=== PATIENT | female | born 1985 | race Caucasian/White ===

== ENCOUNTER 2019-01-26 16:36 | Emergency (ER) | payer OTHER ==
[2019-01-26] MEDS ORDERED: ONDANSETRON 4 MG TAB.RAPDIS PO ONE (17:04)
--- NOTE | 2019-01-26 17:06 | ER Document Report ---
ED Medical Screen (RME) - General Chief Complaint: Abdominal Pain Stated Complaint: ABDOMINAL PAIN Time Seen by Provider: 01/26/19 16:52 Mode of Arrival: Ambulatory Information source: Patient Notes: This 33-year-old female presents emergency department with complaints of lower abdominal pain since August, increasing this past week since she had sex. She complains of pain with sex for years. [facility] but she does not know what is going on. She reports she will have sex and then she will bleed profusely afterwards. Also history of a Crohn's. Patient reports vo miting diarrhea today. Patient is very emotional. Reports she went to the bathroom 2 days ago and she noted pure black fluid in the toilet. I have greeted and performed a rapid initial assessment of this patient. A comprehensive ED assessment and evaluation of the patient, analysis of test results and completion of the medical decision making process will be conducted by additional ED providers. Dictation of this chart was performed using voice recognition software; therefore, there may be some unintended grammatical errors. TRAVEL OUTSIDE OF THE [place] IN LAST 30 DAYS: No - Related Data Allergies/Adverse Reactions: No Known Allergies Allergy (Verified 09/19/15 11:09) Past Medical History - Past Medical History Cardiac Medical History: Denies: Hx Coronary Artery Disease, Hx Heart Attack, Hx Hypertension Pulmonary Medical History: Denies: Hx Asthma, Hx Bronchitis, Hx COPD, Hx Pneumonia Neurological Medical History: Denies: Hx Cerebrovascular Accident, Hx Seizures GI Medical History: Reports: Hx Crohn's Disease, Hx Gastroesophageal Reflux Disease, Hx Ulcerative Colitis Musculoskeltal Medical History: Denies Hx Arthritis Psychiatric Medical History: Reports: Hx Anxiety, Hx Depression Past Surgical History: Reports: Hx Orthopedic Surgery. Denies: Hx Hysterectomy - Immunizations Hx Diphtheria, Pertussis, Tetanus Vaccination: Yes Physical Exam - Vital signs Vitals: Temp Pulse Resp BP Pulse Ox 99.3 F 99 16 134/80 H 94 01/26/19 16:39 01/26/19 16:39 01/26/19 16:39 01/26/19 16:39 01/26/19 16:39 Course - Vital Signs Vital signs: Temp Pulse Resp BP Pulse Ox 99.3 F 99 16 134/80 H 94 01/26/19 16:39 01/26/19 16:39 01/26/19 16:39 01/26/19 16:39 01/26/19 16:39
[2019-01-26] MEDS: IBUPROFEN 800 MG TABLET PO ONE ×2 (17:12→17:16)
[2019-01-26 17:34] LABS: ABSOLUTE LYMPHOCYTES (AUTO) 2.1 10^3/uL (0.5-4.7); ABSOLUTE MONOCYTES (AUTO) 0.8 10^3/uL (0.1-1.4); ABSOLUTE NEUT (AUTO) 10.2 10^3/uL (1.7-8.2); BASOPHILS % (AUTO) 0.2 % (0-2); EOSINOPHILS % (AUTO) 0.3 % (0-6); HEMATOCRIT 47.5 % (36.0-47.0); HEMOGLOBIN 15.9 g/dL (12.0-15.5); LYMPHOCYTES % (AUTO) 16.2 % (13-45); MEAN CORPUSCULAR HEMOGLOBIN 32.2 pg (27.0-33.4); MEAN CORPUSCULAR HGB CONC 33.5 g/dL (32.0-36.0); MEAN CORPUSCULAR VOLUME 96 fl (80-97); PLATELET COUNT 354 10^3/uL (150-450); RED BLOOD COUNT 4.95 10^6/uL (3.72-5.28); SEGMENTED NEUTROPHILS % (AUTO) 77.3 % (42-78); TOTAL CELLS COUNTED % (AUTO) 100 %; WHITE BLOOD COUNT 13.2 10^3/uL (4.0-10.5)
[2019-01-26 17:37] LABS: APPEARANCE,URINE SLIGHTLY-CLOUDY; BILIRUBIN,URINE SMALL (NEGATIVE); COLOR,URINE AMBER; GLUCOSE, URINE NEGATIVE (NEGATIVE); KETONES,URINE TRACE mg/dL (NEGATIVE); LEUKOCYTE ESTERASE,URINE NEGATIVE (NEGATIVE); NITRITE,URINE NEGATIVE (NEGATIVE); PROTEIN,URINE NEGATIVE (NEGATIVE)
--- NOTE | 2019-01-26 17:51 | ER Document Report ---
ED General - General Chief Complaint: Abdominal Pain Stated Complaint: ABDOMINAL PAIN Time Seen by Provider: 01/26/19 16:52 Mode of Arrival: Ambulatory TRAVEL OUTSIDE OF THE [place] IN LAST 30 DAYS: No - HPI Notes: 33-year-old female to the emergency department with complaints of pelvic pain that has been ongoing for the past 5 years but is gotten significantly worse in the past 10 days. She states that she has some associated nausea and vomiting with it and the pain radiates through to her back. She states in the past 5 years she has been noticing that she has painful sex and bleeds during sex. She states that she has been trying to get into see an [facility] but has not been successful. She states that she was supposed to get an [facility] today but it was canceled and she decided to seek medical attention here. She denies any fevers, chills, chest pain, shortness of breath, headache, syncope. She denies any concern for STD and states that she had negative testing about 2 weeks ago. She denies any urinary complaints. - Related Data Allergies/Adverse Reactions: No Known Allergies Allergy (Verified 09/19/15 11:09) Past Medical History - General Information source: Patient - Social History Smoking Status: Current Every Day Smoker Frequency of alcohol use: None Drug Abuse: Marijuana Lives with: Family Family History: Reviewed & Not Pertinent Patient has suicidal ideation: No Patient has homicidal ideation: No - Past Medical History Cardiac Medical History: Denies: Hx Coronary Artery Disease, Hx Heart Attack, Hx Hypertension Pulmonary Medical History: Denies: Hx Asthma, Hx Bronchitis, Hx COPD, Hx Pneumonia Neurological Medical History: Denies: Hx Cerebrovascular Accident, Hx Seizures GI Medical History: Reports: Hx Crohn's Disease, Hx Gastroesophageal Reflux Disease, Hx Ulcerative Colitis Musculoskeletal Medical History: Denies Hx Arthritis Psychiatric Medical History: Reports: Hx Anxiety, Hx Depression Past Surgical History: Reports: Hx Orthopedic Surgery. Denies: Hx Hysterectomy - Immunizations Hx Diphtheria, Pertussis, Tetanus Vaccination: Yes Review of Systems - Review of Systems Constitutional: Malaise. denies: Chills, Fever EENT: No symptoms reported Cardiovascular: denies: Chest pain, Palpitations, Heart racing, Orthopnea, Dyspnea, Syncope, Dizziness, Lightheaded Respiratory: denies: Cough, Short of breath Gastrointestinal: denies: Abdominal pain, Diarrhea, Nausea, Vomiting Female Genitourinary: Irregular period, Vaginal bleeding, Painful intercourse. denies: Musculoskeletal: See HPI, Back pain Skin: No symptoms reported Hematologic/Lymphatic: No symptoms reported Neurological/Psychological: No symptoms reported -: Yes All other systems reviewed and negative Physical Exam - Vital signs Vitals: Temp Pulse Resp BP Pulse Ox 99.3 F 99 16 134/80 H 94 01/26/19 16:39 01/26/19 16:39 01/26/19 16:39 01/26/19 16:39 01/26/19 16:39 Interpretation: Normal - General General appearance: Appears well, Alert In distress: None - HEENT Head: Normocephalic, Atraumatic Eyes: Normal Pupils: PERRL Ears: Normal External canal: Normal Tympanic membrane: Normal Sinus: Normal Nasal: Normal Mouth/Lips: Normal Mucous membranes: Normal Pharynx: Normal Neck: Normal - Respiratory Respiratory status: No respiratory distress Chest status: Nontender Breath sounds: Normal Chest palpation: Normal - Cardiovascular Rhythm: Regular Heart sounds: Normal auscultation Murmur: No - Abdominal Inspection: Normal Distension: No distension Bowel sounds: Normal Tenderness: Tender - + TTP over the suprapubic abdomen with no rebound or guarding.. No: McBurney's point, Haq's sign, Guarding, Rebound Organomegaly: No organomegaly - Genitourinary External exam: Normal Speculum exam: Cervix closed Vaginal bleeding: None Bimanuel exam: No: Bladder/Urethral tender, Adnexal mass, Adnexal tenderness, Uterus enlarged Notes: mild tenderness with palpation to the cervix. Little to no vaginal discharge. No adnexal mass or TTP. No evidence of trauma to the vaginal vault. external genitalia WNL. CHaperoned by [employer]. - Back Back: Normal, Nontender - Neurological Neuro grossly intact: Yes Cognition: Normal Orientation: AAOx4 Carlos Coma Scale Eye Opening: Spontaneous Carlos Coma Scale Verbal: Oriented Carlos Coma Scale Motor: Obeys Commands Cary Coma Scale Total: 15 Speech: Normal Cranial nerves: Normal Cerebellar coordination: Normal Motor strength normal: LUE, RUE, LLE, RLE Additional motor exam normals: Equal senior investment manager. No: Pronator drift Sensory: Normal - Psychological Associated symptoms: Normal affect, Normal mood - Skin Skin Temperature: Warm Skin Moisture: Dry Skin Color: Normal Course - Re-evaluation Re-evalutation: 01/26/19 18:55 Laboratory 01/26/19 01/26/19 01/26/19 17:10 17:10 17:10 WBC 13.2 H RBC 4.95 Hgb 15.9 H Hct 47.5 H MCV 96 MCH 32.2 MCHC 33.5 RDW 14.0 Plt Count 354 Lymph % (Auto) 16.2 [place] % (Auto) 6.0 Eos % (Auto) 0.3 Baso % (Auto) 0.2 Absolute Neuts (auto) 10.2 H Absolute Lymphs (auto) 2.1 Absolute Monos (auto) 0.8 Absolute Eos (auto) 0.0 Absolute Basos (auto) 0.0 Seg Neutrophils % 77.3 Sodium 138.3 Potassium 4.0 Chloride 107 Carbon Dioxide 24 Anion Gap 7 BUN 10 Creatinine 0.84 Est GFR ( Amer) > 60 Est GFR (MDRD) Non-Af > 60 Glucose 93 Calcium 9.4 Total Bilirubin 0.2 Direct Bilirubin 0.1 Neonat Total Bilirubin Not Reportable Neonat Direct Bilirubin Not Reportable Neonat Indirect Bili Not Reportable AST 20 ALT 14 Alkaline Phosphatase 57 Total Protein 6.1 L Albumin 3.8 Urine Color JUNAID Urine Appearance SLIGHTLY-CLOUDY Urine pH 5.0 Ur Specific [place] 1.020 Urine Protein NEGATIVE Urine Glucose (UA) NEGATIVE Urine Ketones TRACE H Urine Blood NEGATIVE Urine Nitrite NEGATIVE Urine Bilirubin SMALL H Urine Urobilinogen 2.0 H Ur Leukocyte Esterase NEGATIVE Urine WBC (Auto) 1 Urine RBC (Auto) 1 Squamous Epi Cells Auto 1 Urine Mucus (Auto) OCC Urine Ascorbic Acid NEGATIVE Urine HCG, Qual NEGATIVE Trichomonas (Wet Prep) Vaginal WBC Vaginal Yeast 01/26/19 18:30 WBC RBC Hgb Hct MCV MCH MCHC RDW Plt Count Lymph % (Auto) [place] % (Auto) Eos % (Auto) Baso % (Auto) Absolute Neuts (auto) Absolute Lymphs (auto) Absolute Monos (auto) Absolute Eos (auto) Absolute Basos (auto) Seg Neutrophils % Sodium Potassium Chloride Carbon Dioxide Anion Gap BUN Creatinine Est GFR ( Amer) Est GFR (MDRD) Non-Af Glucose Calcium Total Bilirubin Direct Bilirubin Neonat Total Bilirubin Neonat Direct Bilirubin Neonat Indirect Bili AST ALT Alkaline Phosphatase Total Protein Albumin Urine Color Urine Appearance Urine pH Ur Specific Formoso Urine Protein Urine Glucose (UA) Urine Ketones Urine Blood Urine Nitrite Urine Bilirubin Urine Urobilinogen Ur Leukocyte Esterase Urine WBC (Auto) Urine RBC (Auto) Squamous Epi Cells Auto Urine Mucus (Auto) Urine Ascorbic Acid Urine HCG, Qual Trichomonas (Wet Prep) NO TRICHOMONAS SEEN Vaginal WBC FEW WBCS SEEN Vaginal Yeast NO YEAST SEEN Transvaginal US 01/26/19 17:03 IMPRESSION: Age-appropriate exam. Impression: Chronic pelvic pain, dyspareunia. Noted pelvic US and labs. pelvic exam with pain, but no vaginal discharge. she had negative STD testing two weeks ago, low suspicion for STD. Will send to OBGYN. Give small amount of pain meds. Patient agrees with the plan. - Vital Signs Vital signs: Temp Pulse Resp BP Pulse Ox 99.3 F 99 16 134/80 H 94 01/26/19 16:39 01/26/19 16:39 01/26/19 16:39 01/26/19 16:39 01/26/19 16:39 - Laboratory Result Diagrams: 01/26/19 17:10 01/26/19 17:10 Laboratory results interpreted by me: 01/26/19 01/26/19 01/26/19 17:10 17:10 17:10 WBC 13.2 H Hgb 15.9 H Hct 47.5 H Absolute Neuts (auto) 10.2 H Total Protein 6.1 L Urine Ketones TRACE H Urine Bilirubin SMALL H Urine Urobilinogen 2.0 H - Diagnostic Test Radiology reviewed: Image reviewed, Reports reviewed Discharge - Discharge Clinical Impression: Pelvic pain, Dyspareunia Condition: Stable Disposition: HOME, SELF-CARE Instructions: Pelvic Pain ([facility]) Additional Instructions: FOLLOW UP WITH [facility] LISTED BELOW. RETURN IF WORSENING SYMPTOMS SUCH INTRACTABLE VOMITING, FEVERS, OR ANY OTHER CONCERNS. PELVIC REST FOR NOW. Prescriptions: Ondansetron [Zofran Odt 4 mg Tablet] 1 - 2 tab PO Q4HP PRN #10 tab.rapdis PRN Reason: Hydrocodone/Acetaminophen [[place] 5-325 mg Tablet] 1 tab PO Q6H #8 tablet [facility] - Follow up as needed NIKKI DOTSON DO [ACTIVE STAFF] - Follow up in 1 week
[2019-01-26 17:53] LABS: ALBUMIN 3.8 g/dL (3.5-5.0); ALKALINE PHOSPHATASE 57 U/L (38-126); ANION GAP 7 (5-19); ASPARTATE AMINO TRANSFERASE 20 U/L (14-36); BILIRUBIN,DIRECT 0.1 mg/dL (0.0-0.4); BILIRUBIN,TOTAL 0.2 mg/dL (0.2-1.3); BLOOD UREA NITROGEN 10 mg/dL (7-20); CALCIUM 9.4 mg/dL (8.4-10.2); CARBON DIOXIDE 24 mmol/L (22-30); CHLORIDE 107 mmol/L (98-107); GLUCOSE 93 mg/dL (75-110); TOTAL PROTEIN 6.1 g/dL (6.3-8.2)
--- NOTE | 2019-01-26 18:08 | RADIOLOGY REPORT (SQ) ---
EXAM DESCRIPTION: U/S NON OB PEL TV W/DOPPLER COMPLETED DATE/TIME: 01/26/2019 5:47 pm REASON FOR STUDY: pelvic pain COMPARISON: None. TECHNIQUE: Dynamic and static grayscale images acquired of the pelvis via transvaginal approach and recorded on PACS. Additional selected color Doppler and spectral images recorded. LIMITATIONS: None. FINDINGS: UTERUS: Contour normal. No mass. ENDOMETRIAL STRIPE: No focal or generalized thickening. No masses. CERVIX: Small nabothian cysts. RIGHT OVARY AND DOPPLER: Normal size. No worrisome masses. Normal arterial vascular flow without evid ence for torsion. LEFT OVARY AND DOPPLER: Normal size. No worrisome masses. Normal arterial vascular flow without evide nce for torsion. FREE FLUID: None noted. OTHER: No other significant finding. MEASUREMENTS: UTERUS: 7.9 x 5.1 x 3.3 cm ENDOMETRIAL STRIPE: 6 mm RIGHT OVARY: 3.4 x 2.6 x 1.7 cm LEFT OVARY: 2.1 x 2.3 x 2.0 cm IMPRESSION: Age-appropriate exam. TECHNICAL DOCUMENTATION: JOB ID: [id number] 2010 [employer]- All Rights Reserved Rev-09/23 Reading location - IP/workstation name: [email or web address]
[2019-01-26] MEDS ORDERED: HYDROCODONE/ACETAMINOPHEN 5-325 MG TABLET PO ONE (18:38)
[2019-01-26 18:49] LABS: T.VAGINALIS (WET MOUNT) NO TRICHOMONAS SEEN; WBCS (WET MOUNT) FEW WBCS SEEN; YEAST (WET MOUNT) NO YEAST SEEN
[2019-01-26 19:37] VITALS: BP 125/85
[2019-01-26 20:16] LABS: CHLAM PCR NOT DETECTED (NOT DETECT)
== END 2019-01-26 19:34 | disposition home or self-care (01) ==
LOC: ER 16:36
DX: N94.10 Unspecified dyspareunia (principal); R10.2 Pelvic and perineal pain; R10.9 Unspecified abdominal pain; R11.2 Nausea with vomiting, unspecified; M54.9 Dorsalgia, unspecified; F17.200 Nicotine dependence, unspecified, uncomplicated
CPT/HCPCS: 99284; 36415; 87210; 85025; 81025; 80053; 81001; 87491; 87591; 76830; 93976; S0119

== ENCOUNTER → 2019-02-08 | Outpatient (CLI) | payer OTHER ==
[2019-02-09 07:38] LABS: HEPATITS B SURFACE ANTIGEN Negative (Negative)
[2019-02-09 10:04] LABS: HEPATITIS C VIRUS ANTIBODY <0.1 s/co ratio (0.0-0.9)
== END ==
LOC: OD 12:23
PROVIDERS: ATTEND Internal Medicine Gastroenterology
DX: K50.919 Crohn's disease, unspecified, with unspecified complications (principal)
CPT/HCPCS: 36415; 80074; 85652; 86140

== ENCOUNTER 2019-02-15 10:49 | Day surgery (SDC) | payer OTHER ==
[2019-02-15] MEDS ORDERED: FENTANYL CITRATE INJ/PF 100 MCG/2 ML AMPUL IV PRN ×3 (12:48)
[2019-02-15] MEDS ORDERED: DIPHENHYDRAMINE HCL 50 MG/ML VIAL IV PRN (12:48)
[2019-02-15] MEDS ORDERED: PROMETHAZINE HCL INJ 25 MG/1 ML VIAL IV PRN (12:48)
[2019-02-15] MEDS ORDERED: PROPOFOL INJ 200 MG/20 ML VIAL IV ONE (13:06)
[2019-02-15] MEDS ORDERED: DIPHENHYDRAMINE HCL 50 MG/ML VIAL ONE (13:18)
[2019-02-15] MEDS ORDERED: PROMETHAZINE HCL INJ 25 MG/1 ML VIAL ONE (13:18)
--- NOTE | 2019-02-15 15:24 | Operative Report ---
Operative Report DATE OF SURGERY: 02/15/19 Operative Report: The risks, benefits and alternatives of the procedure including the risk of bleeding, perforation requiring surgery have been explained to the patient in detail and informed consent has been obtained. The patient is taken back to the endoscopy suite and placed in a left, lateral decubital position. Timeout was called. Propofol medication is administered. Rectal examination is done which did not reveal any masses, tears or fissures. An Olympus videoscope was introduced into the patient's rectum. The scope was then carefully advanced all the way to the cecum. The cecum was identified by the usual anatomical landmarks including the ileocecal valve as well as the appendiceal office. Photodocumentation is obtained. Scope was then sequentially pulled back via the various segments of the colon including the ascending colon, hepatic flexure, transverse colon, splenic flexure, descending colon and finally into the rectosigmoid portions of the colon. Retroflexion maneuvers performed. The risks benefits and alternatives of the procedure explained to the patient in detail and informed consent is obtained.A GIF Olympus video scope was inserted into the patient's mouth and hypopharynx, the esophagus is identified intubated and insufflated, the scope was then advanced through the esophagus stomach and duodenum, retroflexion maneuver is done ,the esophagus stomach and first and second portions of the duodenum examined. PREOPERATIVE DIAGNOSIS: Change of bowel habits. Nausea vomiting POSTOPERATIVE DIAGNOSIS: Normal terminal ileum. Right colon inflammation status post biopsy. Internal hemorrhoids. Gastritis status post biopsy. Hiatal hernia OPERATION: Colonoscopy with biopsy. EGD with biopsy SURGEON: KAILASH BELL ANESTHESIA: LMAC TISSUE REMOVED OR ALTERED: As noted above. COMPLICATIONS: None. ESTIMATED BLOOD LOSS: None. INTRAOPERATIVE FINDINGS: As noted above. PROCEDURE: Patient tolerated the procedure well. No immediate postprocedure complications are noted. Patient is discharged in good condition. Discharge date 02/15/2019. Discharge diet: Regular. Discharge activity: Regular. 2 to 3-week follow-up to discuss findings. Patient is instructed to call the office or proceed to the emergency room should there be any further questions. Wait on the pathology.
[2019-02-15 16:14] VITALS: BP 105/67
== END 2019-02-15 15:05 | disposition home or self-care (01) ==
LOC: OROUT 10:49
PROVIDERS: ATTEND Internal Medicine Gastroenterology
DX: K50.919 Crohn's disease, unspecified, with unspecified complications (principal); K29.50 Unspecified chronic gastritis without bleeding; K52.9 Noninfective gastroenteritis and colitis, unspecified; K64.8 Other hemorrhoids; K44.9 Diaphragmatic hernia without obstruction or gangrene
CPT/HCPCS: 43239; 45380; 81025; 88342 ×2; 88305 ×2; 00813; J1200; J2550; J2704; 813

== ENCOUNTER → 2019-03-06 | Outpatient (CLI) | payer OTHER ==
--- NOTE | 2019-03-06 12:00 | RADIOLOGY REPORT (SQ) ---
EXAM DESCRIPTION: NM HIDA SCAN WITH CCK COMPLETED DATE/TIME: 03/06/2019 10:32 am REASON FOR STUDY: RUQ PAIN (R10.11) R10.11 RIGHT UPPER QUADRANT PAIN COMPARISON: None. RADIONUCLIDE AND DOSE: DOSAGE RADIONUCLIDE: 5 millicuries Tc99m Mebrofenin. DOSAGE CCK: 1.1 micrograms. DOSAGE MORPHINE: Not required. The route of agent administration: Intravenous TECHNIQUE: Serial imaging right upper quadrant up to 60 minutes following injection of radionuclide. CCK injected after gallbladder visualized. LIMITATIONS: None. FINDINGS: LIVER: Normal visualization without areas of photopenia. INTRAHEPATIC BILE DUCTS: Normal size and no delay in visualization. COMMON BILE DUCT: Normal without dilatation. GALLBLADDER: Normal visualization. Calculated ejection fraction of 22.2%. Normal range is greater than 35%. PHYSICAL RESPONSE: Patients presenting complaint was reproduced. OTHER: No other significant finding. IMPRESSION: Biliary dyskinesis. The ejection fraction was 22.2% where 35% or greater is considered normal. The cystic duct and common bile duct are patent. Patient's symptoms were reproduced with CC K administration. TECHNICAL DOCUMENTATION: JOB ID: [id number] [employer]- All Rights Reserved Reading location - IP/workstation name: [email or web address]
--- NOTE | 2019-03-06 14:06 | RADIOLOGY REPORT (SQ) ---
EXAM DESCRIPTION: U/S ABDOMEN LIMITED W/O DOP COMPLETED DATE/TIME: 03/06/2019 8:14 am REASON FOR STUDY: RUQ PAIN (R10.11) R10.11 RIGHT UPPER QUADRANT PAIN COMPARISON: None. TECHNIQUE: Dynamic and static grayscale images acquired of the abdomen and recorded on PACS. Additio nal selected color Doppler and spectral images recorded. LIMITATIONS: None. FINDINGS: PANCREAS: The visualized portions of the pancreas appear normal. LIVER: Normal contour and echotexture. LIVER VASCULATURE: Normal directional flow of the main portal vein and hepatic veins. GALLBLADDER: The gallbladder wall measures 1.3 mm in thickness. There is no cholelithiasis, sludge, or pericholecystic fluid ULTRASOUND-DETECTED LIMON'S SIGN: Negative. INTRAHEPATIC DUCTS AND COMMON DUCT: The common bile duct measures 2.5 mm in diameter. There is no di latation of intrahepatic biliary ducts. INFERIOR VENA CAVA: Normal flow. AORTA: No aneurysm. RIGHT KIDNEY: The right kidney measures 9.3 cm in length. There is no hydronephrosis. PERITONEAL AND RIGHT PLEURAL SPACE: No ascites or effusions. OTHER: No other findings. IMPRESSION: No sonographic abnormality of the right upper quadrant. TECHNICAL DOCUMENTATION: JOB ID: [id number] [employer]- All Rights Reserved Reading location - IP/workstation name: [email or web address]
== END ==
LOC: RAD 07:27
PROVIDERS: ATTEND Internal Medicine Gastroenterology
DX: K82.8 Other specified diseases of gallbladder (principal); R10.11 Right upper quadrant pain
CPT/HCPCS: 76705; 78227; J2805; A9537; Q9969

== ENCOUNTER 2019-04-07 12:11 | Emergency (ER) | payer OTHER ==
[2019-04-07] MEDS ORDERED: MORPHINE SULFATE 10 MG/ML INJ IV ONE (12:23)
[2019-04-07] MEDS ORDERED: ONDANSETRON HCL INJ/PF 4 MG/2 ML SDV IV ONE (12:23)
[2019-04-07] MEDS ORDERED: NORMAL SALINE 1000 ML 1,000 ML IV ONE (12:24)
--- NOTE | 2019-04-07 12:26 | ER Document Report ---
ED Medical Screen (RME) - General Chief Complaint: Abdominal Pain Stated Complaint: ABDOMINAL PAIN,NAUSEA Time Seen by Provider: 04/07/19 12:20 Primary Care Provider: KAILASH BELL MD [Primary Care Provider] - Follow up as needed Mode of Arrival: Wheelchair Information source: Patient Notes: Patient is a 34-year-old female with past medical history of Crohn's, MS and gallbladder disease presenting with headache, nausea, vomiting, diarrhea and generalized abdominal pain. She states that she is currently waiting for [facility] to schedule her cholecystectomy. Exam: Generalized tenderness to palpation of the abdomen. I have greeted and performed a rapid initial assessment of this patient. A comprehensive ED assessment and evaluation of the patient, analysis of test results and completion of the medical decision making process will be conducted by additional ED providers. I have specifically instructed the patient or family members with the patient to immediately return to any nursing staff should anything change in the patient's condition or with their chief complaint. This medical record was dictated with voice recognizing software. There may be grammatical, syntax errors that are unintended. - Related Data Allergies/Adverse Reactions: sumatriptan [From Imitrex] Allergy (Verified 04/07/19 12:21) Difficulty breathing fluoxetine [From Prozac] Adverse Reaction (Verified 04/07/19 12:21) Anxiety Home Medications: patient doesnt have list in triage Past Medical History - Social History Chew tobacco use (# tins/day): No Frequency of alcohol use: None Drug Abuse: None - Past Medical History Cardiac Medical History: Denies: Hx Coronary Artery Disease, Hx Heart Attack, Hx Hypertension Pulmonary Medical History: Denies: Hx Asthma, Hx Bronchitis, Hx COPD, Hx Pneumonia Neurological Medical History: Denies: Hx Cerebrovascular Accident, Hx Seizures GI Medical History: Reports: Hx Crohn's Disease, Hx Gastroesophageal Reflux Disease, Hx Ulcerative Colitis Musculoskeltal Medical History: Denies Hx Arthritis Psychiatric Medical History: Reports: Hx Anxiety, Hx Depression Past Surgical History: Reports: Hx Orthopedic Surgery. Denies: Hx Hysterectomy - Immunizations Hx Diphtheria, Pertussis, Tetanus Vaccination: Yes Physical Exam - Vital signs Vitals: Temp Pulse Resp BP Pulse Ox 98.4 F 95 18 113/64 96 04/07/19 12:15 04/07/19 12:15 04/07/19 12:15 04/07/19 12:15 04/07/19 12:15 Course - Vital Signs Vital signs: Temp Pulse Resp BP Pulse Ox 98.4 F 95 18 113/64 96 04/07/19 12:15 04/07/19 12:15 04/07/19 12:15 04/07/19 12:15 04/07/19 12:15 Doctor's Discharge - Discharge Referrals: KAILASH BELL MD [Primary Care Provider] - Follow up as needed
[2019-04-07 12:53] LABS: HEMATOCRIT 44.5 % (36.0-47.0); HEMOGLOBIN 15.1 g/dL (12.0-15.5); MEAN CORPUSCULAR HEMOGLOBIN 32.7 pg (27.0-33.4); MEAN CORPUSCULAR HGB CONC 33.9 g/dL (32.0-36.0); MEAN CORPUSCULAR VOLUME 96 fl (80-97); PLATELET COUNT 293 10^3/uL (150-450); RED BLOOD COUNT 4.61 10^6/uL (3.72-5.28); RED CELL DISTRIBUTION WIDTH 13.6 % (11.5-14.0); WHITE BLOOD COUNT 6.4 10^3/uL (4.0-10.5)
[2019-04-07 13:11] LABS: APPEARANCE,URINE SLIGHTLY-CLOUDY; BILIRUBIN,URINE NEGATIVE (NEGATIVE); COLOR,URINE YELLOW; GLUCOSE, URINE NEGATIVE (NEGATIVE); KETONES,URINE TRACE mg/dL (NEGATIVE); LEUKOCYTE ESTERASE,URINE NEGATIVE (NEGATIVE); NITRITE,URINE NEGATIVE (NEGATIVE); PROTEIN,URINE 30 mg/dL (NEGATIVE); UROBILINOGEN,URINE NEGATIVE mg/dL (<2.0)
[2019-04-07 13:28] LABS: ABSOLUTE LYMPHOCYTES# (MANUAL) 0.3 10^3/uL (0.5-4.7); ABSOLUTE MONOCYTES # (MANUAL) 0.8 10^3/uL (0.1-1.4); BASOPHILS % (MANUAL) 0 % (0-2); EOSINOPHILS % (MANUAL) 0 % (0-6); LYMPHOCYTES % (MANUAL) 4 % (13-45); MONOCYTES % (MANUAL) 13 % (3-13); SEGMENTED NEUTROPHILS % (MAN) 83 % (42-78); SMUDGE CELLS PRESENT; TOTAL CELLS COUNTED 100
[2019-04-07 13:29] LABS: ALBUMIN 3.8 g/dL (3.5-5.0); ALKALINE PHOSPHATASE 61 U/L (38-126); ANION GAP 7 (5-19); ASPARTATE AMINO TRANSFERASE 17 U/L (14-36); BILIRUBIN,DIRECT 0.1 mg/dL (0.0-0.4); BILIRUBIN,TOTAL 0.1 mg/dL (0.2-1.3); BLOOD UREA NITROGEN 8 mg/dL (7-20); CALCIUM 9.2 mg/dL (8.4-10.2); CARBON DIOXIDE 26 mmol/L (22-30); CHLORIDE 107 mmol/L (98-107); GLUCOSE 110 mg/dL (75-110); PLATELET COMMENT ADEQUATE; POTASSIUM 3.9 mmol/L (3.6-5.0); TOTAL PROTEIN 6.4 g/dL (6.3-8.2)
--- NOTE | 2019-04-07 13:29 | ER Document Report ---
ED GI/ - General Chief Complaint: Abdominal Pain Stated Complaint: ABDOMINAL PAIN,NAUSEA Time Seen by Provider: 04/07/19 12:20 Primary Care Provider: [facility] [Provider Group] - Follow up as needed KAILASH BELL MD [ACTIVE STAFF] - Follow up as needed Mode of Arrival: Wheelchair Notes: Patient is a 34-year-old female with a history of MS (recently diagnosed last week by Dr. Schwarz - waiting for spinal tap), gastritis, Crohn's and hiatal hernia who presents to the emergency department with a chief complaint of abdominal pain and vomiting. Patient reports that she has been having intermittent abdominal pain for over 1 month. She states that she did have an upper endoscopy as well as a lower endoscopy by Dr Bell in February. Patient states that she had a normal ultrasound of the gallbladder but did have a HIDA scan performed at the end of February which did show 20% function. She states she is waiting for referral at [facility] to have her gallbladder removed. Patient reports she is not been able to tolerate anything by mouth over the past 2 days including water. Patient reports she is having generalized body aches. Patient reports she is having chills but has not checked her temperature at home. Patient reports she does have intermittent diarrhea and constipation due to the Crohn's. Patient reports last bowel movement was yesterday which was l oose stool without blood. TRAVEL OUTSIDE OF THE [place] IN LAST 30 DAYS: No - Related Data Allergies/Adverse Reactions: sumatriptan [From Imitrex] Allergy (Verified 04/07/19 12:21) Difficulty breathing fluoxetine [From Prozac] Adverse Reaction (Verified 04/07/19 12:21) Anxiety Home Medications: patient doesnt have list in triage Past Medical History - General Information source: Patient - Social History Smoking Status: Never Smoker Chew tobacco use (# tins/day): No Frequency of alcohol use: None Drug Abuse: None Lives with: Family Family History: Reviewed & Not Pertinent Patient has suicidal ideation: No Patient has homicidal ideation: No - Past Medical History Cardiac Medical History: Reports: None Denies: Hx Coronary Artery Disease, Hx Heart Attack, Hx Hypertension Pulmonary Medical History: Reports: None Denies: Hx Asthma, Hx Bronchitis, Hx COPD, Hx Pneumonia EENT Medical History: Reports: None Neurological Medical History: Reports: Other - MS. Denies: Hx Cerebrovascular Accident, Hx Seizures Endocrine Medical History: Reports: None Renal/ Medical History: Reports: None Malignancy Medical History: Reports: None GI Medical History: Reports: Hx Crohn's Disease, Hx Gastritis, Hx Gastroeso phageal Reflux Disease, Hx Hiatal Hernia, Hx Ulcerative Colitis Musculoskeletal Medical History: Reports None, Denies Hx Arthritis Skin Medical History: Reports None Psychiatric Medical History: Reports: Hx Anxiety, Hx Depression Traumatic Medical History: Reports: None Infectious Medical History: Reports: None Past Surgical History: Reports: Hx Orthopedic Surgery. Denies: Hx Hysterectomy - Immunizations Hx Diphtheria, Pertussis, Tetanus Vaccination: Yes Review of Systems - Review of Systems Constitutional: See HPI EENT: No symptoms reported Cardiovascular: No symptoms reported Respiratory: No symptoms reported Gastrointestinal: See HPI Genitourinary: No symptoms reported Female Genitourinary: No symptoms reported Musculoskeletal: No symptoms reported Skin: No symptoms reported Hematologic/Lymphatic: No symptoms reported Neurological/Psychological: No symptoms reported Physical Exam - Vital signs Vitals: Temp Pulse Resp BP Pulse Ox 98.4 F 95 18 113/64 96 04/07/19 12:15 04/07/19 12:15 04/07/19 12:15 04/07/19 12:15 04/07/19 12:15 Interpretation: Normal - Notes Notes: GENERAL: Well-appearing, well-nourished and in no acute distress. HEAD: Atraumatic, normocephalic. EYES: Pupils equal round and reactive to light, extraocular movements intact, sclera anicteric, conjunctiva are normal. ENT: Nares patent, oropharynx clear without exudates. Moist mucous membranes. NECK: Normal range of motion, supple without lymphadenopathy or JVD. LUNGS: Breath sounds clear to auscultation bilaterally and equal. No wheezes rales or rhonchi. HEART: Regular rate and rhythm without murmurs, rubs or gallops. ABDOMEN: Soft, minimally tender in upper abdomen, hyperactive bowel sounds. No guarding, no rebound. No masses appreciated. BACK: No cervical, thoracic, lumbar midline tenderness. No saddle anesthesia, normal distal neurovascular exam. GENITOURINARY: Deferred. EXTREMITIES: Normal range of motion, no pitting or edema. No clubbing or cyanosis. NEUROLOGICAL: Cranial nerves II through XII grossly intact. Normal speech, normal gait. PSYCH: Normal mood, normal affect. SKIN: Warm, Dry, normal turgor, no rashes or lesions noted. Course - Re-evaluation Re-evalutation: 04/07/19 13:27 We will obtain basic labs, give IV fluids for hydration. Once the laboratory studies have resulted I will consult Dr. Valdez our on-call surgicalist due to the patient's HIDA scan results from 1 month ago and inability to tolerate liquids. 04/07/19 13:44 I did consult with Dr. Valdez in regards to the patient's HIDA scan and negative ultrasound of the right upper quadrant 1 month ago. He does recommend since the patient's lipase is slightly elevated and she is having nausea and vomiting to repeat the ultrasound of the gallbladder. 04/07/19 15:04 Patient's ultrasound of the gallbladder was negative. Patient has not had any vomiting since receiving the Zofran. Upon reevaluation patient is resting comfortably but does complain of a migraine headache. Patient reports she does suffer from migraines. We will give patient Reglan, Benadryl and Toradol for her discomfort. I did inform the patient after receiving this cocktail if her symptoms improve and she can tolerate liquids we will discharge her home. Ultimately the patient will need to have her gallbladder out but I did inform her that this is not an emergent issue at this time. Patient was given strict return precautions. 04/07/19 16:19 Patient reports feeling much better with her migraine after the medication cocktail. Patient has not had any vomiting and has tolerated liquids. I did inform the patient that she will be discharged and given a prescription for Phenergan. She does report having Zofran at home that is not helping. Patient states that she feels like eating Thanksgiving dinner exacerbated her symptoms. I did inform the patient due to her HIDA scan results she does need to limit and refrain from any fat intake as this can exacerbate your pain and nausea. Patient verbalized understanding. Patient to call [facility] on Tuesday to see if they have received the referral. Patient given strict return precautions. - Vital Signs Vital signs: Temp Pulse Resp BP Pulse Ox 98.6 F 79 16 94/59 L 100 04/07/19 15:54 04/07/19 15:54 04/07/19 15:54 04/07/19 15:54 04/07/19 15:54 - Laboratory Result Diagrams: 04/07/19 12:35 04/07/19 12:35 Laboratory results interpreted by me: 04/07/19 04/07/19 04/07/19 12:25 12:35 12:35 Seg Neuts % (Manual) 83 H Lymphocytes % (Manual) 4 L Abs Lymphs (Manual) 0.3 L Total Bilirubin 0.1 L Lipase 448.2 H Urine Protein 30 H Urine Ketones TRACE H Urine Ascorbic Acid 40 H 04/07/19 17:09 Patient's lipase slightly elevated at 448. No significant leukocytosis or alteration or joints. - Diagnostic Test Radiology reviewed: Reports reviewed Radiology results interpreted by me: 04/07/19 15:06 Abdomen Ultrasound 04/07/19 13:43 IMPRESSION: No gallstones gallbladder wall thickening or pericholecystic fluid. Limited view of the midline pancreas unremarkable Discharge - Discharge Clinical Impression: Abdominal pain Qualifiers: Abdominal location: generalized Qualified Code(s): R10.84 - Generalized abdominal pain Nausea & vomiting Qualifiers: Vomiting type: unspecified Vomiting Intractability: non-intractable Qualified Code(s): R11.2 - Nausea with vomiting, unspecified Condition: Stable Disposition: HOME, SELF-CARE Additional Instructions: *Today you are seen the emergency department for abdominal pain. We have given you a sufficient amount of medication which did seem to help with your symptoms. Please take the Phenergan as needed for your nausea. Please refrain from eating fat as we do know that you have biliary dyskinesia and that your gallbladder is not functioning appropriately. Eating any type of fat or grease can exacerbate your symptoms and cause nausea, vomiting or diarrhea and increased pain. Please call us [facility] on Tuesday to see if they have received a referral. Abdominal Pain There are many causes of abdominal pain. Pain can mean a serious problem requiring surgery (such as appendicitis). It can also be an innocent problem that goes away on its own (such as a viral infection). Often, time must pass to determine the cause of pain. The physician does not feel that hospitalization is necessary, at present. Things may change within the next 24 hours. Call the doctor or come back for re-examination if any problems occur, such as: (1) Pain that becomes more severe, steady, or becomes concentrated in one specific area. Also, pain that is more severe with movement or coughing. (2) Vomiting that persists or becomes more frequent. (3) Blood in the vomitus, urine, or bowel movements. Blood in the stool may have a tarry or black appearance. (4) Shaking chills or fever greater than 100 degrees F. (5) The abdomen becomes more distended or swollen. (6) Bowel movements cease. (7) Failure to improve as expected. Prescriptions: Promethazine HCl [Phenergan 25 mg Tablet] 1 tab PO Q6H PRN #15 tablet PRN Reason: Referrals: KAILASH BELL MD [ACTIVE STAFF] - Follow up as needed [facility] [Provider Group] - Follow up as needed
--- NOTE | 2019-04-07 14:38 | RADIOLOGY REPORT (SQ) ---
EXAM DESCRIPTION: U/S ABDOMEN LIMITED W/O DOP COMPLETED DATE/TIME: 04/07/2019 2:21 pm REASON FOR STUDY: elevated lipase, vomiting, ruq pain COMPARISON: Abdominal ultrasound 03/06/2019, 04/30/2010 Hepatobiliary scan 03/06/2019 TECHNIQUE: Dynamic and static grayscale images acquired of the abdomen and recorded on PACS. Additio nal selected color Doppler and spectral images recorded. LIMITATIONS: None. FINDINGS: PANCREAS: Midline pancreas unremarkable LIVER: No masses. Echotexture normal. LIVER VASCULATURE: Normal directional flow of the main portal vein and hepatic veins. GALLBLADDER: No stones. Normal wall thickness. No pericholecystic fluid. ULTRASOUND-DETECTED LIMON'S SIGN: Negative. INTRAHEPATIC DUCTS AND COMMON DUCT: CBD and intrahepatic ducts normal caliber. No filling defects. INFERIOR VENA CAVA: Normal flow. AORTA: No aneurysm. RIGHT KIDNEY: Normal size. Normal echogenicity. No solid or suspicious masses. No hydronephrosis. No calcifications. PERITONEAL AND RIGHT PLEURAL SPACE: No ascites or effusions. OTHER: No other significant findings. IMPRESSION: No gallstones gallbladder wall thickening or pericholecystic fluid. Limited view of the midline pancreas unremarkable TECHNICAL DOCUMENTATION: JOB ID: [id number] [employer]- All Rights Reserved Reading location - IP/workstation name: [id number]
[2019-04-07] MEDS ORDERED: METOCLOPRAMIDE HCL INJ/PF 10 MG/2 ML SDV IV ONE (14:57)
[2019-04-07] MEDS ORDERED: KETOROLAC TROMETHAMINE INJ/PF 30 MG/1 ML SDV IV ONE (15:03)
[2019-04-07] MEDS ORDERED: DIPHENHYDRAMINE HCL 50 MG/ML VIAL IV ONE (15:03)
[2019-04-07 15:55] VITALS: BP 94/59
== END 2019-04-07 16:45 | disposition home or self-care (01) ==
LOC: ER 12:11
DX: R10.84 Generalized abdominal pain (principal); R11.2 Nausea with vomiting, unspecified; M79.10 Myalgia, unspecified site; K50.90 Crohn's disease, unspecified, without complications
CPT/HCPCS: 99284; 96361; 96374; 96375; 36415; 83690; 85025; 81025; 80053; 81001; 76705; J1200; J1885; J2765; J2270; J2405; J7030

== ENCOUNTER 2019-05-25 09:14 | Day surgery (SDC) | payer OTHER ==
[2019-05-22 11:40] LABS: HEMATOCRIT 41.2 % (36.0-47.0); HEMOGLOBIN 13.8 g/dL (12.0-15.5); MEAN CORPUSCULAR HEMOGLOBIN 32.2 pg (27.0-33.4); MEAN CORPUSCULAR HGB CONC 33.5 g/dL (32.0-36.0); MEAN CORPUSCULAR VOLUME 96 fl (80-97); PLATELET COUNT 308 10^3/uL (150-450); RED BLOOD COUNT 4.29 10^6/uL (3.72-5.28); WHITE BLOOD COUNT 7.5 10^3/uL (4.0-10.5)
[2019-05-22 12:14] LABS: ALBUMIN 2.9 g/dL (3.5-5.0); ALKALINE PHOSPHATASE 60 U/L (38-126); ANION GAP 5 (5-19); ASPARTATE AMINO TRANSFERASE 20 U/L (14-36); BILIRUBIN,DIRECT 0.2 mg/dL (0.0-0.4); BILIRUBIN,TOTAL 0.2 mg/dL (0.2-1.3); BLOOD UREA NITROGEN 14 mg/dL (7-20); CALCIUM 8.6 mg/dL (8.4-10.2); CARBON DIOXIDE 25 mmol/L (22-30); CHLORIDE 109 mmol/L (98-107); POTASSIUM 4.2 mmol/L (3.6-5.0); TOTAL PROTEIN 5.2 g/dL (6.3-8.2)
[2019-05-22 12:30] LABS: GLUCOSE 44 mg/dL (75-110)
[~2019-05-25 09:14] MED LIST: CEFOXITIN SODIUM 2 GM in DEXTROSE 5%-WATER 100 ML IV PRN; DEXAMETHASONE SOD PHOSPHATE INJ 4 MG/1 ML VIAL ONE; FENTANYL CITRATE INJ/PF 100 MCG/2 ML AMPUL ONE; IBUPROFEN 800 MG in NORMAL SALINE 250 ML IV PRN; LACTATED RINGERS 1000 ML IV PRN; LIDOCAINE 0.5% INJ-PF (5 MG/ML) 50 ML SDV SUBCUT PRN; MIDAZOLAM 2 MG/2 ML INJ ONE; ONDANSETRON HCL INJ/PF 4 MG/2 ML SDV ONE; PROPOFOL INJ 200 MG/20 ML VIAL IV ONE; SUGAMMADEX SODIUM 200 MG/2 ML SDV IV ONE
[2019-05-25] MEDS ORDERED: MIDAZOLAM 2 MG/2 ML INJ ONE (10:18)
[2019-05-25] MEDS ORDERED: SUCCINYLCHOLINE CHLORIDE INJ 200 MG/10 ML VIAL ONE (10:19)
[2019-05-25] MEDS ORDERED: ROCURONIUM BROMIDE INJ 50 MG/5 ML VIAL IV ONE (10:19)
[2019-05-25] MEDS ORDERED: BUPIVACAINE HCL 0.25 % INJ/PF (2.5 MG/1 ML) 30 ML VIAL ONE (12:01)
[2019-05-25] MEDS ORDERED: MORPHINE SULFATE 10 MG/ML INJ IV PRN (12:55)
[2019-05-25] MEDS ORDERED: MEPERIDINE HCL/PF INJ 25 MG/1 ML DISP.SYRIN IV PRN (12:55)
[2019-05-25] MEDS ORDERED: PROMETHAZINE HCL INJ 25 MG/1 ML VIAL IV PRN ×2 (12:55)
[2019-05-25] MEDS ORDERED: FENTANYL CITRATE INJ/PF 100 MCG/2 ML AMPUL IV PRN ×3 (12:55)
[2019-05-25] MEDS ORDERED: ONDANSETRON HCL INJ/PF 4 MG/2 ML SDV IV PRN (12:55)
[2019-05-25] MEDS ORDERED: DIPHENHYDRAMINE HCL 50 MG/ML VIAL IV PRN (12:55)
[2019-05-25] MEDS ORDERED: BUPIVACAINE HCL 0.25 % INJ/PF (2.5 MG/1 ML) 30 ML VIAL INJ ONE (13:00)
--- NOTE | 2019-05-25 13:55 | Discharge Summary ---
Discharge Summary (SDC) - Discharge Final Diagnosis: Biliary dyskinesia Date of Surgery: 05/25/19 Discharge Date: 05/25/19 Condition: Stable Forms: ASU Anesthesia D/C Instruction, Discharge POC-Surgical Service Treatment or Instructions: Discharge home. Diet as tolerated. Activity: No lifting greater than 10 pounds x 2 weeks. Follow-up with me in 7 to 10 days. [place] 10/3 2 5 mg p.o. every 6 hours PRN for pain. Ibuprofen 800 mg p.o. 3 times daily with meals. Okay to shower in 48 hours. No tub baths or swimming pools x2 weeks. Referrals: DAVID HAYES MD [ACTIVE STAFF] - 06/05/19 1:15 pm Discharge Diet: As Tolerated Respiratory Treatments at Home: Deep Breathing/Coughing, Incentive Spirometer Discharge Activity: No Lifting Over 10 Pounds, No Lifting/Push/Pulling Home Care Assistance: None Needed Report the Following to Your Physician Immediately: Shortness of Breath, Nausea, Vomiting, Increase in Pain, Yellow Skin, Fever over 101 Degrees, Unusual Bleeding, Redness
--- NOTE | 2019-05-25 14:02 | Operative Report ---
Nonrecallable Operative Report DATE OF SURGERY: 05/25/19 PREOPERATIVE DIAGNOSIS: Biliary dyskinesia POSTOPERATIVE DIAGNOSIS: Biliary dyskinesia OPERATION: Laparoscopic cholecystectomy SURGEON: DAVID HAYES ANESTHESIA: GA TISSUE REMOVED OR ALTERED: Gallbladder COMPLICATIONS: None apparent ESTIMATED BLOOD LOSS: Minimal PROCEDURE: Drains/implants: None. Procedure in detail: After informed consent was obtained, the patient was brought to the operating room and laid in the supine position. The area of the abdomen was prepped and draped in a normal sterile fashion. A 15 blade scalpel was used to create an infraumbilical incision. This was deepened using sharp and blunt dissection. The cicatrix was identified, grasped with a Jose clamp, and retracted upwards. The linea alba fascia was incised sharply, the abdomen was entered sharply. The balloon trocar was inserted, and pneumoperitoneum was achieved. A Subxiphoid 5 mm port was then placed under direct laparoscopic visualization. 2 more 5 mm ports were placed in the right upper quadrant in similar fashion. Atraumatic graspers were placed through the 5 mm ports. The gallbladder was retracted cephalad and laterally. Dissection was begun in the triangle of [place]ot. The cystic duct and cystic artery were fully visualized and skeletonized, seeing the liver through the triangle. Once the critical view of safety was obtained, the cystic duct and cystic artery were clipped and cut with laparoscopic instruments. The gallbladder was removed from the liver using Bovie electrocautery. The gallbladder was then placed into an Endo Catch bag and pulled out through the umbilicus. The camera was then reinserted. The hilum was inspected. It was found to be free of any leakage of blood or bile. The abdomen was copiously irrigated and suctioned until the effluent was clear. Next, the 5 mm trochars were removed. The infraumbilical trocar was removed, and pneumoperitoneum was relieved. The infraumbilical fascia was closed using 0 Vicryl suture in [id number] fashion. The overlying skin was closed using 4-0 Vicryl Rapide suture in subcuticular fashion. All sponge, instrument, needle counts were correct x2. Condition: Stable.
[2019-05-25] MEDS ORDERED: ACETAMINOPHEN 1,000 MG/100 ML RTUPB IV ONE (14:10)
[2019-05-25] MEDS ORDERED: KETOROLAC TROMETHAMINE INJ/PF 30 MG/1 ML SDV ONE (14:10)
[2019-05-25] MEDS: FENTANYL CITRATE INJ/PF 100 MCG/2 ML AMPUL ONE ×2 (14:13→14:18)
[2019-05-25] MEDS ORDERED: HYDROCODONE/ACETAMINOPHEN 10-325 MG TABLET ONE (14:59)
[2019-05-25] MEDS ORDERED: DEXAMETHASONE SOD PHOSPHATE INJ 4 MG/1 ML VIAL ONE (16:09)
[2019-05-25 16:58] VITALS: BP 119/70
== END 2019-05-25 16:50 | disposition home or self-care (01) ==
LOC: OROUT 09:14
PROVIDERS: ATTEND Surgery
DX: K81.1 Chronic cholecystitis (principal); Z88.8 Allergy status to other drugs, medicaments and biological substances; G35 Multiple sclerosis; Z79.899 Other long term (current) drug therapy; E07.9 Disorder of thyroid, unspecified
CPT/HCPCS: 36415; 82962; 85027; 81025; 80053; 88304 ×2; 00790; 47562; J2250; J3490 ×2; J1100; J3010; J1885; J0330; J2405; J7060; J7050; J2704; J0131; J1741; J0694; 790

== ENCOUNTER 2019-06-11 08:03 | Day surgery (SDC) | payer OTHER ==
[2019-06-11 08:39] LABS: INTERNATIONAL RATION (INR) 1.04; PROTHROMBIN TIME 13.6 SEC (11.4-15.4)
[2019-06-11 08:40] LABS: PARTIAL THROMBOPLASTIN TIME 30.9 SEC (23.5-35.8)
[2019-06-11 11:40] LABS: GLUCOSE,CSF 57 mg/dL (40-70); PROTEIN,CSF 30 mg/dL (12-60)
[2019-06-11 12:02] LABS: APPEARANCE ALL TUBES CLEAR; APPEARANCE TUBE 1 CLEAR; APPEARANCE TUBE 2 CLEAR; APPEARANCE TUBE 3 CLEAR; APPEARANCE TUBE 4 CLEAR; COLOR ALL TUBES COLORLESS; COLOR TUBE 1 COLORLESS; COLOR TUBE 2 COLORLESS; COLOR TUBE 3 COLORLESS; COLOR TUBE 4 COLORLESS; CSF TUBE NUMBER 3
[2019-06-11 12:03] LABS: VOLUME TUBE 1 2.5 CC; VOLUME TUBE 4 3.5 CC
[2019-06-11 12:04] LABS: RED BLOOD CELL,CSF 0 /uL (0-10)
[2019-06-11 12:06] LABS: WHITE BLOOD CELL,CSF 1 /uL (0-5)
[2019-06-11 13:31] VITALS: BP 99/58
--- NOTE | 2019-06-11 13:52 | RADIOLOGY REPORT (SQ) ---
EXAM DESCRIPTION: LUMBAR PUNCTURE; FLUORO/NEEDLE PLACEMENT/SPINE COMPLETED DATE/TIME: 06/11/2019 12:16 pm; 06/11/2019 12:15 pm REASON FOR STUDY: MS G35 MULTIPLE SCLEROSIS COMPARISON: None. FLUOROSCOPY TIME: 9 seconds of fluoroscopy was used. 2 images saved to PACS. TECHNIQUE: Fluoroscopic guided lumbar puncture. LIMITATIONS: None. PROCEDURE: After written consent and assessment were obtained, the patient was brought into the fluo roscopy room and placed prone on the table. The patient's lower back was prepped in a sterile fashio n and an entry site was selected under live fluoroscopic guidance. The entry site was anesthetized wi th 1% lidocaine. A 20 gauge needle was advanced through the skin and into the thecal sac at the level of L2-L3. After approximately 10 ml was drained, the needle was removed and a sterile bandage was pl aced of the site. Specimens were sent to the lab for testing. A fluoroscopic spot image was saved t o PACS confirming level access. FINDINGS: Clear CSF IMPRESSION: Lumbar puncture under fluoroscopy. No immediate complication. COMMENT: Patient medication list reviewed: Yes- Quality ID# [id number]:Eligible professional attests to doc umenting in the medical record they obtained, updated, or reviewed the patient's current medications. . Quality ID 145: Final reports for procedures using fluoroscopy that document radiation exposure ana cristina mohini, or exposure time and number of fluorographic images (if radiation exposure indices are not avail able) TECHNICAL DOCUMENTATION: JOB ID: [id number] [employer]- All Rights Reserved Reading location - IP/workstation name: [email or web address] [id number]
--- NOTE | 2019-06-11 13:52 | RADIOLOGY REPORT (SQ) ---
EXAM DESCRIPTION: LUMBAR PUNCTURE; FLUORO/NEEDLE PLACEMENT/SPINE COMPLETED DATE/TIME: 06/11/2019 12:16 pm; 06/11/2019 12:15 pm REASON FOR STUDY: MS G35 MULTIPLE SCLEROSIS COMPARISON: None. FLUOROSCOPY TIME: 9 seconds of fluoroscopy was used. 2 images saved to PACS. TECHNIQUE: Fluoroscopic guided lumbar puncture. LIMITATIONS: None. PROCEDURE: After written consent and assessment were obtained, the patient was brought into the fluo roscopy room and placed prone on the table. The patient's lower back was prepped in a sterile fashio n and an entry site was selected under live fluoroscopic guidance. The entry site was anesthetized wi th 1% lidocaine. A 20 gauge needle was advanced through the skin and into the thecal sac at the level of L2-L3. After approximately 10 ml was drained, the needle was removed and a sterile bandage was pl aced of the site. Specimens were sent to the lab for testing. A fluoroscopic spot image was saved t o PACS confirming level access. FINDINGS: Clear CSF IMPRESSION: Lumbar puncture under fluoroscopy. No immediate complication. COMMENT: Patient medication list reviewed: Yes- Quality ID# [id number]:Eligible professional attests to doc umenting in the medical record they obtained, updated, or reviewed the patient's current medications. . Quality ID 145: Final reports for procedures using fluoroscopy that document radiation exposure ana cristina mohini, or exposure time and number of fluorographic images (if radiation exposure indices are not avail able) TECHNICAL DOCUMENTATION: JOB ID: [id number] [employer]- All Rights Reserved Reading location - IP/workstation name: [email or web address] [id number]
== END 2019-06-11 13:20 | disposition home or self-care (01) ==
LOC: RAD 08:03
PROVIDERS: ATTEND Physician Assistant Surgical
DX: G35 Multiple sclerosis (principal)
CPT/HCPCS: 36415; 62270; 77003; 82945; 83916; 84157; 85610; 85730; 87070; 87205; 89050

== ENCOUNTER 2019-06-12 15:24 | Emergency (ER) | payer OTHER ==
[2019-06-12] MEDS ORDERED: ONDANSETRON HCL INJ/PF 4 MG/2 ML SDV IV ONE (16:00)
[2019-06-12] MEDS ORDERED: NORMAL SALINE 1000 ML 1,000 ML IV ONE (16:00)
--- NOTE | 2019-06-12 16:02 | ER Document Report ---
ED Medical Screen (RME) - General Chief Complaint: Headache Stated Complaint: HEADACHE/POSSIBLY POST PROCEDURE RELATED Time Seen by Provider: 06/12/19 15:46 Primary Care Provider: WENDIE QUINTEROS NP [Primary Care Provider] - Follow up as needed Notes: HPI: History is obtained from the patient and the chart. A 34-year-old female who with a history of MS presenting for worsening headache and vomiting today. Patient had a fluoroscopy guided LP yesterday as part of her MS work-up. Patient with worsening headache nausea vomiting today no fever. Was told to come to the emergency department for worsening headache by her PCP. I have greeted and performed a rapid initial assessment of this patient. A comprehensive ED assessment and evaluation of the patient, analysis of test results and completion of the medical decision making process will be conducted by additional ED providers PHYSICAL EXAMINATION: GENERAL: Well-appearing, well-nourished and in moderate acute distress. HEAD: Atraumatic, normocephalic. EYES: sclera anicteric, conjunctiva are normal. ENT: Moist mucous membranes. NECK: Normal range of motion LUNGS: Normal work of breathing HEART: 2+ radial pulses bilaterally ABD: limited by positioning for exam in triage. EXTREMITIES: no pitting or edema. No cyanosis. NEUROLOGICAL: No focal neurological deficits. Moves all extremities spontaneously and on command. PSYCH: Normal mood, normal affect. SKIN: Warm, Dry, normal turgor, no rashes or lesions noted. I spoke with Dr. Love, anesthesiology. She will come down to see the patient and discuss a blood patch with her. Spoke with the charge nurse who will obtain bed for patient to have this procedure by anesthesiology TRAVEL OUTSIDE OF THE [place] IN LAST 30 DAYS: No - Related Data Allergies/Adverse Reactions: sumatriptan [From Imitrex] Allergy (Intermediate, Verified 05/25/19 09:28) Difficulty breathing fluoxetine [From Prozac] Allergy (Mild, Verified 05/25/19 09:28) Anxiety Past Medical History - Past Medical History Cardiac Medical History: Denies: Hx Coronary Artery Disease, Hx Heart Attack, Hx Hypertension Pulmonary Medical History: Denies: Hx Asthma, Hx Bronchitis, Hx COPD, Hx Pneumonia Neurological Medical History: Denies: Hx Cerebrovascular Accident, Hx Seizures GI Medical History: Reports: Hx Crohn's Disease, Hx Gastritis, Hx Gastroesophageal Reflux Disease, Hx Hiatal Hernia, Hx Ulcerative Colitis Musculoskeltal Medical History: Denies Hx Arthritis Psychiatric Medical History: Reports: Hx Anxiety, Hx Depression Past Surgical History: Reports: Hx Orthopedic Surgery. Denies: Hx Hysterectomy - Immunizations Hx Diphtheria, Pertussis, Tetanus Vaccination: Yes Physical Exam - Vital signs Vitals: Temp Pulse Resp BP Pulse Ox 98.2 F 76 16 117/66 100 06/12/19 15:28 06/12/19 15:28 06/12/19 15:28 06/12/19 15:28 06/12/19 15:28 Course - Vital Signs Vital signs: Temp Pulse Resp BP Pulse Ox 98.2 F 76 16 117/66 100 06/12/19 15:28 06/12/19 15:28 06/12/19 15:28 06/12/19 15:28 06/12/19 15:28 Doctor's Discharge - Discharge Referrals: WENDIE QUINTEROS FINANCIAL SALES ASSISTANT [Primary Care Provider] - Follow up as needed
[2019-06-12] MEDS ORDERED: BUTALB/ACETAMINOPHEN/CAFFEINE 1 TAB EACH PO ONE (16:58)
--- NOTE | 2019-06-12 17:16 | ER Document Report ---
ED General - General Chief Complaint: Headache Stated Complaint: HEADACHE/POSSIBLY POST PROCEDURE RELATED Time Seen by Provider: 06/12/19 15:46 Primary Care Provider: WENDIE QUINTEROS NP [NURSE PRACTITIONER] - Follow up as needed TRAVEL OUTSIDE OF THE [place] IN LAST 30 DAYS: No - HPI Notes: Patient is a 34-year-old female with a history of multiple sclerosis who presents to the emergency department for evaluation of a headache. She states that yesterday morning she had a lumbar puncture performed under fluoroscopy. She went home, stated she had a mild headache then. She states that since then has progressed. She is complaining of pain in her forehead and temporal regions, as well as in her back of her head. She states this is the typical location of her migraines. She is had some nausea but no emesis. Her pain is worsened by bending over, and actually seems to feel better when standing up straight per the patient. No fevers or chills. On occasion she has some numbness in her hand, thought to be is as a result of her multiple sclerosis, but she states she does not have that at this time. No fevers, no sore throat, no other acute complaints or concerns. - Related Data Allergies/Adverse Reactions: sumatriptan [From Imitrex] Allergy (Intermediate, Verified 05/25/19 09:28) Difficulty breathing fluoxetine [From Prozac] Allergy (Mild, Verified 05/25/19 09:28) Anxiety Home Medications: List reviewed, please see note Past Medical History - General Information source: Patient - Social History Smoking Status: Unknown if Ever Smoked Family History: Reviewed & Not Pertinent Patient has suicidal ideation: No Patient has homicidal ideation: No - Past Medical History Cardiac Medical History: Denies: Hx Coronary Artery Disease, Hx Heart Attack, Hx Hypertension Pulmonary Medical History: Denies: Hx Asthma, Hx Bronchitis, Hx COPD, Hx Pneumonia Neurological Medical History: Reports: Other - Multiple sclerosis, diagnosed via white matter lesions on MRI. Denies: Hx Cerebrovascular Accident, Hx Seizures GI Medical History: Reports: Hx Crohn's Disease, Hx Gastritis, Hx Gastroesophageal Reflux Disease, Hx Hiatal Hernia, Hx Ulcerative Colitis Musculoskeletal Medical History: Denies Hx Arthritis Psychiatric Medical History: Reports: Hx Anxiety, Hx Depression Past Surgical History: Reports: Hx Orthopedic Surgery. Denies: Hx Hysterectomy - Immunizations Hx Diphtheria, Pertussis, Tetanus Vaccination: Yes Review of Systems - Review of Systems Constitutional: No symptoms reported EENT: No symptoms reported Cardiovascular: No symptoms reported Respiratory: No symptoms reported Gastrointestinal: See HPI Genitourinary: No symptoms reported Musculoskeletal: No symptoms reported Skin: No symptoms reported Neurological/Psychological: No symptoms reported Physical Exam - Vital signs Vitals: Temp Pulse Resp BP Pulse Ox 98.2 F 76 16 117/66 100 06/12/19 15:28 06/12/19 15:28 06/12/19 15:28 06/12/19 15:28 06/12/19 15:28 - Notes Notes: This is a 34-year-old female who appears her stated age, in no acute distress. She is lying flat on the bed. Vital signs reviewed, please refer to chart. Head is normocephalic, atraumatic. Pupils equal round, reactive to light. Neck is supple without meningismus. Heart is regular rate and rhythm. Lungs are clear to auscultation bilaterally. Abdomen is soft, nontender, normoactive bowel sounds throughout. Extremities without cyanosis, clubbing. Posterior calves are nontender. Peripheral pulses are equal. Skin is warm and dry. Examination of the back yields a puncture ninoska to the left of her L3-L4 interspace, consistent with recent lumbar puncture. No surrounding erythema, edema, or induration. Patient is awake, alert, oriented x3. Cranial nerves II - XII are grossly intact without focal neurological deficits. Strength is plus 5 out of 5 bilateral upper and lower extremities. Sensation is intact. Reflexes symmetr ical. Intact [id number], rapid alternating movements, [id number]. Course - Re-evaluation Re-evalutation: 06/12/19 17:15 Patient presents to the emergency department for evaluation. She complains of a headache after lumbar puncture. Certainly this does not seem very typical of a spinal headache, but I will defer to my anesthesia colleague in regards to treatment. She was evaluated by Dr. Love, who asked that the patient be administered to Fioricet and they will reassess. Patient is comfortable and stable at this time. We will continue to monitor. 06/12/19 18:27 Patient feeling moderately improved. The anesthesiologist spoke to the patient and nurse, discussed proceeding with blood patch versus a trial of Fioricet at home. The patient opted for some Fioricet at home and follow-up. She understands she is to return the emergency department with worsening or new concerning symptoms of any sort. - Vital Signs Vital signs: Temp Pulse Resp BP Pulse Ox 98.2 F 76 18 105/67 99 06/12/19 15:28 06/12/19 15:28 06/12/19 18:01 06/12/19 18:00 06/12/19 18:01 Discharge - Discharge Clinical Impression: Headache Clinical Impression: (Ruled Out): Headache , short unilat neuralgiform, w/conjunctival injection/tearing Condition: Stable Disposition: HOME, SELF-CARE Instructions: Post-Spinal Headache ([facility]), Headache ([facility]) Additional Instructions: You were evaluated here for possible spinal headache. You will be sent home with a prescription of Fioricet, the medication you were given here. If your pain worsens, or you develop any new or concerning symptoms of any sort, please return immediately to the emergency department for reevaluation. Otherwise, follow-up with primary care this week. Referrals: WENDIE QUINTEROS MEDIC TECHNICIAN [NURSE PRACTITIONER] - Follow up as needed
[2019-06-12 18:47] VITALS: BP 100/67
== END 2019-06-12 18:45 | disposition home or self-care (01) ==
LOC: ER 15:24
DX: R51 Headache (principal); R11.0 Nausea; G35 Multiple sclerosis; Z98.890 Other specified postprocedural states; Z88.6 Allergy status to analgesic agent; Z88.8 Allergy status to other drugs, medicaments and biological substances
CPT/HCPCS: 99283; 96361; 96374; J3490; J2405; J7030

== ENCOUNTER 2019-06-14 21:57 | Emergency (ER) | payer OTHER ==
[2019-06-14] MEDS ORDERED: DIPHENHYDRAMINE HCL 50 MG/ML VIAL IV ONE (22:44)
[2019-06-14] MEDS ORDERED: KETOROLAC TROMETHAMINE INJ/PF 30 MG/1 ML SDV IV ONE (22:44)
[2019-06-14] MEDS ORDERED: METOCLOPRAMIDE HCL INJ/PF 10 MG/2 ML SDV IV ONE (22:44)
[2019-06-14] MEDS ORDERED: NORMAL SALINE 1000 ML 1,000 ML IV ONE (22:45)
--- NOTE | 2019-06-14 22:48 | ER Document Report ---
ED Medical Screen (RME) - General Chief Complaint: Headache Stated Complaint: HEADACHE Time Seen by Provider: 06/14/19 22:40 [facility] Provider: [facility] [Primary [facility]] - Follow up as needed Notes: Patient is a 34-year-old female with a history of MS who presents emergency department with headache. Patient reports she had a lumbar puncture on Tuesday. Patient reports right afterwards she developed a headache. Patient was reports that she returned to the hospital then and was seen by the anesthesiologist on Tuesday. Patient reports she was given Fioricet. They did offer a blood patch which at that time she declined as she would try the Fioricet. Patient reports is worse when sitting or standing. Patient reports the headache is located in her bilateral temples and back of her head. Patient reports some light sensitivity and nausea. Denies fever or vomiting. Patient reports she is been attempting to take the Fioricet which did initially help but that is not anymore. Patient also takes promethazine and Zofran at home. TRAVEL OUTSIDE OF THE [place] IN LAST 30 DAYS: No - Related Data Allergies/Adverse Reactions: sumatriptan [From Imitrex] Allergy (Intermediate, Verified 06/14/19 22:38) Difficulty breathing fluoxetine [From Prozac] Allergy (Mild, Verified 06/14/19 22:38) Anxiety Home Medications: "Patient refused" Past Medical History - Past Medical History Cardiac Medical History: Denies: Hx Coronary Artery Disease, Hx Heart Attack, Hx Hypertension Pulmonary Medical History: Denies: Hx Asthma, Hx Bronchitis, Hx COPD, Hx Pneumonia Neurological Medical History: Reports: Hx Migraine. Denies: Hx Cerebrovascular Accident, Hx Seizures GI Medical History: Reports: Hx Crohn's Disease, Hx Gastritis, Hx Gastroesophageal Reflux Disease, Hx Hiatal Hernia, Hx Ulcerative Colitis Musculoskeltal Medical History: Denies Hx Arthritis Psychiatric Medical History: Reports: Hx Anxiety, Hx Depression Past Surgical History: Reports: Hx Orthopedic Surgery. Denies: Hx Hysterectomy - Immunizations Hx Diphtheria, Pertussis, Tetanus Vaccination: Yes Physical Exam - Vital signs Vitals: Temp Pulse Resp BP Pulse Ox 99.2 F 93 16 97/65 L 100 06/14/19 22:01 06/14/19 22:01 06/14/19 22:01 06/14/19 22:01 06/14/19 22:01 Course - Re-evaluation Re-evalutation: 06/14/19 22:47 Patient alert and oriented x3 in triage. Patient no acute distress. We will start IV fluids as well as our migraine cocktail to include Reglan, Toradol, Benadryl. I have greeted and performed a rapid initial assessment of this patient. A comprehensive ED assessment and evaluation of the patient, analysis of test results and completion of the medical decision making process will be conducted by additional ED providers. - Vital Signs Vital signs: Temp Pulse Resp BP Pulse Ox 99.2 F 93 16 97/65 L 100 06/14/19 22:01 06/14/19 22:01 06/14/19 22:01 06/14/19 22:01 06/14/19 22:01 Doctor's Discharge - Discharge Referrals: [facility] [Primary Care Provider] - Follow up as needed
[2019-06-14] MEDS ORDERED: PROCHLORPERAZINE EDISYLATE INJ 10 MG/2 ML VIAL IV ONE (23:10)
--- NOTE | 2019-06-14 23:14 | ER Document Report ---
ED Headache - General Chief Complaint: Headache Stated Complaint: HEADACHE Time Seen by Provider: 06/14/19 22:40 Primary Care Provider: LAURA,KAREN [Primary Care Provider] - Follow up as needed Notes: 34-year-old woman presents to the emergency department with a complaint of a severe headache which began after her lumbar puncture which was performed on Tuesday. She was seen at the hospital with complaint of headache and was given the option of a blood patch versus medical treatment with Fioricet. The patient chose to treat the headache with Fioricet. It has not controlled the headache and she feels like her migraine has kicked in. She complains of nausea, photophobia and fatigue. TRAVEL OUTSIDE OF THE [place] IN LAST 30 DAYS: No - Related Data Allergies/Adverse Reactions: sumatriptan [From Imitrex] Allergy (Intermediate, Verified 06/14/19 22:38) Difficulty breathing fluoxetine [From Prozac] Allergy (Mild, Verified 06/14/19 22:38) Anxiety Home Medications: "Patient refused" Past Medical History - Social History Smoking Status: Never Smoker Family History: Reviewed & Not Pertinent Patient has suicidal ideation: No Patient has homicidal ideation: No - Past Medical History Cardiac Medical History: Denies: Hx Coronary Artery Disease, Hx Heart Attack, Hx Hypertension Pulmonary Medical History: Denies: Hx Asthma, Hx Bronchitis, Hx COPD, Hx Pneumonia Neurological Medical History: Reports: Hx Migraine. Denies: Hx Cerebrovascular Accident, Hx Seizures GI Medical History: Reports: Hx Crohn's Disease, Hx Gastritis, Hx Gastroesophageal Reflux Disease, Hx Hiatal Hernia, Hx Ulcerative Colitis Musculoskeletal Medical History: Denies Hx Arthritis Psychiatric Medical History: Reports: Hx Anxiety, Hx Depression Past Surgical History: Reports: Hx Orthopedic Surgery. Denies: Hx Hysterectomy - Immunizations Hx Diphtheria, Pertussis, Tetanus Vaccination: Yes Review of Systems - Review of Systems Notes: Constitutional: Negative for fever. HENT: Negative for sore throat. Eyes: Negative for visual changes. Cardiovascular: Negative for chest pain. Respiratory: Negative for shortness of breath. Gastrointestinal: Negative for abdominal pain, vomiting or diarrhea. Genitourinary: Negative for dysuria. Musculoskeletal: Negative for back pain. Skin: Negative for rash. Neurological: + Headaches, + weakness 10 point ROS negative except as marked above and in HPI. Physical Exam - Vital signs Vitals: Temp Pulse Resp BP Pulse Ox 99.2 F 93 16 97/65 L 100 06/14/19 22:01 06/14/19 22:01 06/14/19 22:01 06/14/19 22:01 06/14/19 22:01 - Notes Notes: PHYSICAL EXAMINATION: Physical Exam: General: Well-nourished well-developed 34-year-old female moderate distress secondary to severe headache HEENT: NC/AT, pupils equal round and reactive to light, MM moist,nares clear, oropharynx clear Neck: supple, no adenopathy, no masses. Lungs: clear, no wheezing, no rales no rhonchi CVS: Regular rate and rhythm, no murmur gallop or rub Abdomen: Soft, active nontender, no masses, no hepatosplenomegaly Ext: No edema clubbing or cyanosis. Neuro: Alert and responsive, moving all 4 extremities on command, cranial nerves intact. No focal neurologic findings. Skin: Intact no open lesions, no rash PSYCH: Normal mood, normal affect. Course - Re-evaluation Re-evalutation: 06/15/19 01:52 Patient received cocktail for migraine which included Compazine, Toradol, and Benadryl. Her headache has resolved and she is feeling much more comfortable and is ready to be discharged home. I explained to the patient that she may continue her Fioricet or follow-up with her primary care doctor as needed. She acknowledges an understanding of that plan and is in agreement. - Vital Signs Vital signs: Temp Pulse Resp BP Pulse Ox 99.2 F 93 16 97/65 L 100 06/14/19 22:01 06/14/19 22:01 06/14/19 22:01 06/14/19 22:01 06/14/19 22:01 Discharge - Discharge Clinical Impression: Migraine headache Condition: Good Disposition: HOME, SELF-CARE Instructions: Headache ([facility]), Toradol Injection ([facility]), Intravenous Compazine for Headaches ([facility]), Antinausea Medication ([facility]) Additional Instructions: You were diagnosed with migraine headache in the emergency department, the medication seems to have controlled it. If you are having current episodes or issues please follow with your primary care doctor or return to the emergency department if needed. Referrals: [facility] [Primary Care Provider] - Follow up as needed
[2019-06-15 02:01] VITALS: BP 106/60
== END 2019-06-15 01:59 | disposition home or self-care (01) ==
LOC: ER 21:57
DX: G43.909 Migraine, unspecified, not intractable, without status migrainosus (principal); Z98.890 Other specified postprocedural states; R11.0 Nausea; R53.83 Other fatigue; H53.149 Visual discomfort, unspecified; R53.1 Weakness; Z88.6 Allergy status to analgesic agent; Z88.8 Allergy status to other drugs, medicaments and biological substances
CPT/HCPCS: 99283; 96361; 96374; 96375; J1200; J1885; J0780; J7030

== ENCOUNTER → 2019-06-21 | Outpatient (CLI) | payer OTHER ==
--- NOTE | 2019-06-21 23:27 | EKG REPORT ---
SEVERITY:- NORMAL ECG - SINUS RHYTHM : Confirmed by: Ovi Ford MD 21-Jun-2019 23:27:09
== END ==
LOC: OD 16:38
PROVIDERS: ATTEND Nurse Practitioner Family
DX: I95.89 Other hypotension (principal)
CPT/HCPCS: 93005; 93010

== ENCOUNTER 2019-10-11 07:32 | Day surgery (SDC) | payer OTHER ==
[2019-10-03 12:08] LABS: HEMATOCRIT 44.2 % (36.0-47.0); HEMOGLOBIN 15.1 g/dL (12.0-15.5); MEAN CORPUSCULAR HEMOGLOBIN 32.2 pg (27.0-33.4); MEAN CORPUSCULAR HGB CONC 34.1 g/dL (32.0-36.0); MEAN CORPUSCULAR VOLUME 94 fl (80-97); PLATELET COUNT 333 10^3/uL (150-450); RED BLOOD COUNT 4.69 10^6/uL (3.72-5.28); RED CELL DISTRIBUTION WIDTH 13.8 % (11.5-14.0); WHITE BLOOD COUNT 10.9 10^3/uL (4.0-10.5)
[2019-10-03 12:09] LABS: APPEARANCE,URINE SLIGHTLY-CLOUDY; BILIRUBIN,URINE NEGATIVE (NEGATIVE); COLOR,URINE YELLOW; GLUCOSE, URINE NEGATIVE (NEGATIVE); KETONES,URINE 20 mg/dL (NEGATIVE); LEUKOCYTE ESTERASE,URINE NEGATIVE (NEGATIVE); NITRITE,URINE NEGATIVE (NEGATIVE); PROTEIN,URINE 30 mg/dL (NEGATIVE); URINE SPECIFIC GRAVITY 1.021; UROBILINOGEN,URINE NEGATIVE mg/dL (<2.0)
[~2019-10-11 07:32] MED LIST changes: -CEFOXITIN SODIUM 2 GM in DEXTROSE 5%-WATER 100 ML IV PRN; -DEXAMETHASONE SOD PHOSPHATE INJ 4 MG/1 ML VIAL ONE; -FENTANYL CITRATE INJ/PF 100 MCG/2 ML AMPUL ONE; -IBUPROFEN 800 MG in NORMAL SALINE 250 ML IV PRN; -MIDAZOLAM 2 MG/2 ML INJ ONE; -ONDANSETRON HCL INJ/PF 4 MG/2 ML SDV ONE; -PROPOFOL INJ 200 MG/20 ML VIAL IV ONE; -SUGAMMADEX SODIUM 200 MG/2 ML SDV IV ONE
[2019-10-11] MEDS ORDERED: FENTANYL CITRATE INJ/PF 100 MCG/2 ML AMPUL ONE (07:53)
[2019-10-11] MEDS ORDERED: MIDAZOLAM 2 MG/2 ML INJ ONE ×2 (07:53→08:56)
[2019-10-11] MEDS ORDERED: PROPOFOL INJ 200 MG/20 ML VIAL IV ONE (07:54)
[2019-10-11] MEDS ORDERED: ONDANSETRON HCL INJ/PF 4 MG/2 ML SDV ONE (08:26)
[2019-10-11] MEDS ORDERED: SCOPOLAMINE HYDROBROMIDE 1.5 MG PATCH.TD72 ONE (08:26)
[2019-10-11] MEDS ORDERED: PROMETHAZINE HCL INJ 25 MG/1 ML VIAL ONE (08:56)
[2019-10-11] MEDS ORDERED: MIDAZOLAM 2 MG/2 ML INJ IV PRN (09:09)
[2019-10-11] MEDS ORDERED: PROMETHAZINE HCL INJ 25 MG/1 ML VIAL IV PRN ×2 (09:39)
[2019-10-11] MEDS ORDERED: DIPHENHYDRAMINE HCL 50 MG/ML VIAL IV PRN (09:39)
[2019-10-11] MEDS ORDERED: MORPHINE SULFATE 10 MG/ML INJ IV PRN (09:39)
[2019-10-11] MEDS ORDERED: FENTANYL CITRATE INJ/PF 100 MCG/2 ML AMPUL IV PRN ×3 (09:39)
[2019-10-11] MEDS ORDERED: MEPERIDINE HCL/PF INJ 25 MG/1 ML DISP.SYRIN IV PRN (09:39)
[2019-10-11] MEDS ORDERED: ONDANSETRON HCL INJ/PF 4 MG/2 ML SDV IV PRN (09:39)
[2019-10-11] MEDS ORDERED: OXYCODONE-ACETAMINOPHEN 5-325 MG TABLET PO PRN ×4 (09:39→10:08)
[2019-10-11] MEDS ORDERED: SCOPOLAMINE HYDROBROMIDE 1.5 MG PATCH.TD72 TD ONE (10:00)
[2019-10-11] MEDS ORDERED: MIDAZOLAM 2 MG/2 ML INJ IV ONE (10:00)
[2019-10-11] MEDS ORDERED: ONDANSETRON HCL INJ/PF 4 MG/2 ML SDV IV ONE (10:00)
[2019-10-11] MEDS ORDERED: IBUPROFEN 800 MG TABLET PO PRN (10:08)
[2019-10-11] MEDS ORDERED: RINGERS SOLUTION,LACTATED 1,000 ML IV PRN (10:08)
[2019-10-11] MEDS ORDERED: KETOROLAC TROMETHAMINE INJ/PF 30 MG/1 ML SDV IV PRN (10:08)
--- NOTE | 2019-10-11 10:20 | Discharge Summary ---
Discharge Summary (SDC) - Discharge Final Diagnosis: Endometriosis Date of Surgery: 10/11/19 Discharge Date: 10/11/19 Condition: Good Prescriptions: Oxycodone HCl/Acetaminophen [Percocet 5-325 mg Tablet] 1 tab PO Q4HP PRN 7 Days #28 tablet PRN Reason: Referrals: WENDIE QUINTEROS IT SECURITY ADMINISTRATOR [Primary Care Provider] - Discharge Diet: Regular Discharge Activity: Balance Activity w/Rest Home Care Assistance: None Needed Report the Following to Your Physician Immediately: Fever over 101 Degrees
--- NOTE | 2019-10-11 10:26 | Operative Report ---
Operative Report DATE OF SURGERY: 10/11/19 PREOPERATIVE DIAGNOSIS: Pelvic pain POSTOPERATIVE DIAGNOSIS: Minimal endometriosis OPERATION: Laparoscopy with cautery of endometriosis SURGEON: MAGEN JEFFRIES ANESTHESIA: GA TISSUE REMOVED OR ALTERED: Peritoneal endometriosis COMPLICATIONS: None ESTIMATED BLOOD LOSS: 20 cc INTRAOPERATIVE FINDINGS: Minimal spots of endometriosis. Locations include right ovary left peritoneal sidewall peritoneum overlying the bladder posterior cul-de-sac. PROCEDURE: Patient was taken to the OR placed in supine position. Anesthesia was induced. She is placed in the dorsolithotomy position using Sahil stirrups. Her perineum vagina and abdomen were prepared and draped in a sterile fashion. Her bladder was drained with a red rubber catheter. A sponge stick was placed in the vagina for manipulation of the uterus. An incision was made at the umbilicus and after umbilical defect was identified and dilated using a Peg clamp. This allowed the placement of 5 mm port bluntly. Laparoscopy confirmed appropriate placement. The abdomen was insufflated with CO2 gas. Suprapubic incision was made and a port placed under laparoscopic visualization sharply. There were no complications. Next the pelvis was inspected. There were small implants of endometriosis seen over the bladder the left sidewall right ovarian area and right uterosacral ligament area. These were all quite small but were in various locations throughout the pelvis. This does explain her pelvic pain. It is known that even minimal endometriosis can cause pelvic discomfort. Cautery using Kleppinger was used to cauterize the accessible implants. We will treat the other implants globally. Next the gas was allowed to escape from the abdomen. The suprapubic port was removed under visualization. The scope and umbilical port were removed at the same time. The fascia at the umbilicus was closed with a 2-0 Vicryl stitch and the skin closed with a 4-0 undyed Vicryl stitch at both sites. The sponge stick was removed from the vagina. Patient was extubated in the OR and taken recovery in stable condition.
[2019-10-11] MEDS ORDERED: OXYCODONE-ACETAMINOPHEN 5-325 MG TABLET ONE (10:44)
[2019-10-11] MEDS ORDERED: KETOROLAC TROMETHAMINE 60 MG/2 ML SDV ONE (11:34)
[2019-10-11] MEDS ORDERED: DEXAMETHASONE SOD PHOSPHATE INJ 4 MG/1 ML VIAL ONE (11:35)
[2019-10-11 12:20] VITALS: BP 100/63
== END 2019-10-11 12:20 | disposition home or self-care (01) ==
LOC: OROUT 07:32
PROVIDERS: ATTEND Obstetrics & Gynecology
DX: R10.2 Pelvic and perineal pain (principal); N80.0 Endometriosis of uterus; Z79.899 Other long term (current) drug therapy; Z88.8 Allergy status to other drugs, medicaments and biological substances; G35 Multiple sclerosis; E07.9 Disorder of thyroid, unspecified; Z03.818 Encounter for observation for suspected exposure to other biological agents ruled out
CPT/HCPCS: 36415; 85027; 87635; 81005; 81025; 58662; 53899; J2250; J1100; J1885; J3010; J2550; J2405; J2704; C9803; 840

== ENCOUNTER 2019-11-10 21:52 | Emergency (ER) | payer OTHER ==
[2019-11-10] MEDS ORDERED: DEXAMETHASONE SOD PHOS INJ 10 MG/1 ML VIAL IV ONE (23:26)
--- NOTE | 2019-11-10 23:28 | ER Document Report ---
ED Medical Screen (RME) - General TRAVEL OUTSIDE OF THE [place] IN LAST 30 DAYS: No <YAZMIN NOBLES - Last Filed: 11/10/19 23:26> <MAYURI WOODALL JR - Last Filed: 11/11/19 01:27> - General Chief Complaint: Skin Problem Stated Complaint: RASH ON RIGHT THIGH Time Seen by Provider: 11/10/19 23:08 Primary Care Provider: WENDIE QUINTEROS NP [Primary Care Provider] - Follow up as needed Notes: HPI: 34-year-old female presenting to the emergency department complaining of a progressive rash mildly tender and pruritic on the right anterior thigh. No known tick bite. No fever. No other systemic symptoms. Patient does have MS history and is on immune suppressing medications. Patient does have history of genital herpes. PHYSICAL EXAMINATION: Patient with a patched nonblanching purpuric type rash on the right anterior thigh measuring approximately 4 cm in diameter that is mildly tender on palpation, slightly indurated without fluctuance discussed with Dr. Woodall who evaluated patient I have greeted and performed a rapid initial assessment of this patient. A comprehensive ED assessment and evaluation of the patient, analysis of test re sults and completion of medical decision making process will be conducted by an additional ED providers. (YAZMIN NOBLES) 34-year-old female arrives with chief complaint of a nonblanching 4 cm diameter erythemic vasculitis rash. Patient denies any zoster but does take Valtrex on a daily basis already. She takes this for genital herpes. MISTY Mcdonald evaluated this patient and noted that she does have MS that was diagnosed last April 2019. I advised patient to follow-up with personal doctor after initial tests are done here. She was seen at urgent care and they advised her this was a simple rash but it has grown over the last few days from a small 1 cm patch to the current 4 cm patch (MAYURI WOODALL JR) - Related Data Allergies/Adverse Reactions: sumatriptan [From Imitrex] Allergy (Intermediate, Verified 06/14/19 22:38) Difficulty breathing fluoxetine [From Prozac] Allergy (Mild, Verified 06/14/19 22:38) Anxiety Past Medical History - Social History Chew tobacco use (# tins/day): No Frequency of alcohol use: None Drug Abuse: None - Past Medical History Cardiac Medical History: Denies: Hx Coronary Artery Disease, Hx Heart Attack, Hx Hypertension Pulmonary Medical History: Denies: Hx Asthma, Hx Bronchitis, Hx COPD, Hx Pneumonia Neurological Medical History: Reports: Hx Migraine. Denies: Hx Cerebrovascular Accident, Hx Seizures GI Medical History: Reports: Hx Crohn's Disease, Hx Gastritis, Hx Gastroesophageal Reflux Disease, Hx Hiatal Hernia, Hx Ulcerative Colitis Musculoskeltal Medical History: Denies Hx Arthritis Psychiatric Medical History: Reports: Hx Anxiety, Hx Depression Past Surgical History: Reports: Hx Orthopedic Surgery. Denies: Hx Hysterectomy - Immunizations Hx Diphtheria, Pertussis, Tetanus Vaccination: Yes <YAZMIN NOBLES - Last Filed: 11/10/19 23:26> Physical Exam - Vital signs Interpretation: Febrile - General General appearance: Alert - HEENT Head: Normocephalic, Atraumatic Eyes: Normal Pupils: PERRL Mucous membranes: Normal Pharynx: Normal Neck: Normal - Respiratory Respiratory status: No respiratory distress Chest status: Nontender Breath sounds: Normal Chest palpation: Normal - Cardiovascular Rhythm: Regular Heart sounds: Normal auscultation Murmur: No - Abdominal Inspection: Normal Distension: No distension Bowel sounds: Normal Tenderness: Nontender Organomegaly: No organomegaly - Rectal Hemorrhoids: Other - deferred - Genitourinary [place] exam: Other - deferred - Back Back: Normal - Extremities General upper extremity: Normal inspection General lower extremity: Other - Right anterior thigh rash as per HPI. It is along the right proximal thigh mildly tender to palpation Knee: Normal Calf: Normal Ankle: Normal Foot: Normal - Neurological Neuro grossly intact: Yes Cognition: Normal Orientation: AAOx4 [place] Coma Scale Eye Opening: Spontaneous [place] Coma Scale Verbal: Oriented [place] Coma Scale Motor: Obeys Commands [place] Coma Scale Total: 15 Speech: Normal Motor strength normal: LUE, RUE, LLE, RLE Sensory: Normal - Psychological Associated symptoms: Normal affect - Skin Skin Temperature: Warm Skin Moisture: Dry Skin irregularity: Lesion - As per HPI for centimeter vasculitis type rash <MAYURI WOODALL JR - Last Filed: 11/11/19 01:27> - Vital signs Vitals: Temp Pulse Resp BP Pulse Ox 99.3 F 70 18 137/82 H 100 11/10/19 22:56 11/10/19 22:56 11/10/19 22:56 11/10/19 22:56 11/10/19 22:56 Course - Laboratory Result Diagrams: 11/11/19 00:05 11/11/19 00:05 - Diagnostic Test Radiology reviewed: Reports reviewed <MAYURI WOODALL JR - Last Filed: 11/11/19 01:27> - Vital Signs Vital signs: Temp Pulse Resp BP Pulse Ox 99.3 F 70 18 137/82 H 100 11/10/19 22:56 11/10/19 22:56 11/10/19 22:56 11/10/19 22:56 11/10/19 22:56 Critical Care Note - Critical Care Note Total time excluding time spent on procedures (mins): 60 <MAYURI WOODALL JR - Last Filed: 11/11/19 01:27> - Critical Care Note Comments: I took over the case after Yazmin left at 0100 and advised patient of her so far negative labs. CT results also were given to patient. We will write for Decadron and dapsone (MAYURI WOODALL JR) Doctor's Discharge <YAZMIN NOBLES - Last Filed: 11/10/19 23:26> <MAYURI WOODALL JR - Last Filed: 11/11/19 01:27> - Discharge Clinical Impression: Vasculitis Clinical Impression: (Ruled Out): Vasculitic ulcer of right lower extremity Condition: Good Disposition: HOME, SELF-CARE Additional Instructions: Follow-up this week with personal doctor and with diesel machinist call tomorrow for appointment. Take medicines as directed avoid sunlight if possible also call your neurologist about this case. Keep them apprised of your right thigh rash. Return to ER if symptoms worsen or persist. Prescriptions: Dapsone [Dapsone 25 mg Tablet] 25 mg PO DAILY #10 tablet Dexamethasone [Decadron 4 Mg Tablet] 4 mg PO DAILY #5 tablet Referrals: WENDIE QUINTEROS, GEAR STRAIGHTENER [Primary Care Provider] - Follow up as needed
[2019-11-11 00:33] LABS: ABSOLUTE BASOPHILS # (AUTO) 0.1 10^3/uL (0.0-0.2); ABSOLUTE EOSINOPHILS # (AUTO) 0.2 10^3/uL (0.0-0.6); ABSOLUTE MONOCYTES (AUTO) 0.6 10^3/uL (0.1-1.4); ABSOLUTE NEUT (AUTO) 3.7 10^3/uL (1.7-8.2); BASOPHILS % (AUTO) 0.7 % (0-2); HEMATOCRIT 43.5 % (36.0-47.0); HEMOGLOBIN 14.8 g/dL (12.0-15.5); LYMPHOCYTES % (AUTO) 40.2 % (13-45); MEAN CORPUSCULAR HEMOGLOBIN 32.5 pg (27.0-33.4); MEAN CORPUSCULAR HGB CONC 34.2 g/dL (32.0-36.0); MEAN CORPUSCULAR VOLUME 95 fl (80-97); MONOCYTES % (AUTO) 8.5 % (3-13); PLATELET COUNT 354 10^3/uL (150-450); RED BLOOD COUNT 4.56 10^6/uL (3.72-5.28); RED CELL DISTRIBUTION WIDTH 13.9 % (11.5-14.0); SEGMENTED NEUTROPHILS % (AUTO) 48.6 % (42-78); TOTAL CELLS COUNTED % (AUTO) 100 %; WHITE BLOOD COUNT 7.5 10^3/uL (4.0-10.5)
[2019-11-11] MEDS ORDERED: ONDANSETRON 4 MG TAB.RAPDIS PO ONE (00:33)
[2019-11-11 00:37] LABS: INTERNATIONAL RATION (INR) 1.18
[2019-11-11 00:44] LABS: ALBUMIN 4.3 g/dL (3.5-5.0); ALKALINE PHOSPHATASE 68 U/L (38-126); ANION GAP 5 (5-19); ASPARTATE AMINO TRANSFERASE 23 U/L (14-36); BILIRUBIN,TOTAL 0.2 mg/dL (0.2-1.3); BLOOD UREA NITROGEN 16 mg/dL (7-20); CALCIUM 9.4 mg/dL (8.4-10.2); CARBON DIOXIDE 25 mmol/L (22-30); CHLORIDE 107 mmol/L (98-107); GLUCOSE 97 mg/dL (75-110); POTASSIUM 3.8 mmol/L (3.6-5.0); TOTAL PROTEIN 7.1 g/dL (6.3-8.2)
[2019-11-11 00:46] LABS: C-REACTIVE PROTEIN < 5.0 mg/L (<10.0)
[2019-11-11 01:10] LABS: ERYTHROCYTE SEDIMENTATION RATE 6 mm/hr (0-20)
[2019-11-11] MEDS ORDERED: DEXAMETHASONE 4 MG TABLET PO ONE (01:27)
[2019-11-11] MEDS ORDERED: DAPSONE 25 MG TABLET PO SCH (01:28)
--- NOTE | 2019-11-11 01:57 | RADIOLOGY REPORT (SQ) ---
CT right thigh with contrast on 11/11/2019 at 1:21 AM Clinical indications: Right thigh rash, question vasculitis TECHNIQUE: Multiple axial images are obtained from the right pelvis through the right knee following the administration of IV contrast. 65 mL of Omnipaque 350 contrast was administered intravenously. Sagittal and coronal reformatted images are also performed and reviewed. This exam was performed according to our departmental dose-optimization program, which includes automated exposure control, adjustment of the mA and/or kV according to patient size and/or use of iterative reconstruction technique. Total DLP is 242.5 mGy*cm. COMPARISON: None FINDINGS: There are no acute fracture lines. Visualized pelvis appears unremarkable. No adenopathy is noted in the right pelvis or groin. There is skin thickening in the right anterior mid thigh with adjacent subcutaneous fat stranding in the anterior subcutaneous tissues seen on axial images 125 through 141 of series 4. This may represent an area of subcutaneous contusion or cellulitis. No abnormal vasculature is noted in this region. There is no fluid collection to suggest abscess. No pathologic contrast enhancement is noted. No mass or fluid collection is noted. No bony abnormality is noted. IMPRESSION: Subcutaneous area of contusion or cellulitis in the anterior mid thigh subcutaneous tissues as above. No evidence of abscess, abnormal vessels or mass is noted associated with this.
[2019-11-11] MEDS ORDERED: DAPSONE 25 MG TABLET ONE (02:09)
[2019-11-11 02:24] VITALS: BP 106/72
[2019-11-13 07:15] LABS: EPSTEIN BARR VCA IGM AB <36.0 U/mL (0.0-35.9)
== END 2019-11-11 02:25 | disposition home or self-care (01) ==
LOC: ER 21:52
DX: L95.9 Vasculitis limited to the skin, unspecified (principal); G35 Multiple sclerosis; Z79.899 Other long term (current) drug therapy; Z20.828 Contact with and (suspected) exposure to other viral communicable diseases
CPT/HCPCS: 99285; 96374; 36415; 86665 ×2; 86664; 85025; 85652; 85610; 87635; 86140; 80053; 73701; J3490; S0119; J1100; C9803

== ENCOUNTER 2019-11-28 19:09 | Emergency (ER) | payer OTHER ==
[2019-11-28] MEDS ORDERED: NORMAL SALINE 1000 ML 1,000 ML IV ONE (19:45)
[2019-11-28] MEDS ORDERED: PROCHLORPERAZINE EDISYLATE INJ 10 MG/2 ML VIAL IV ONE (19:45)
[2019-11-28] MEDS ORDERED: DIPHENHYDRAMINE HCL 50 MG/ML VIAL IV ONE (19:45)
--- NOTE | 2019-11-28 19:48 | ER Document Report ---
ED Medical Screen (RME) - General Chief Complaint: Headache Stated Complaint: MIGRAINE,ABDOMIANL PAIN Time Seen by Provider: 11/28/19 19:39 Primary Care Provider: WENDIE QUINTEROS NP [Primary Care Provider] - Follow up as needed Information source: Patient Notes: Patient presents complaining of headache and pelvic pain. Patient states that she has chronic migraines as well as chronic pelvic pain due to endometriosis. Patient states that the pain to her head and lower abdomen worsened over the past 2 days. Patient vague with describing her symptoms, frequently to stating that she always has this pain and has difficulty pinpointing where her pain symptoms are. Patient without any eye contact throughout entire interview. I have greeted and performed a rapid initial assessment of this patient. A comprehensive ED assessment and evaluation of the patient, analysis of test results and completion of the medical decision making process will be conducted by additional ED providers. TRAVEL OUTSIDE OF THE [place] IN LAST 30 DAYS: No - Related Data Allergies/Adverse Reactions: sumatriptan [From Imitrex] Allergy (Intermediate, Verified 11/28/19 19:39) Difficulty breathing fluoxetine [From Prozac] Allergy (Mild, Verified 11/28/19 19:39) Anxiety fremanezumab-vfrm [From Ajovy Autoinjector] Allergy (Verified 11/28/19 19:39) rizatriptan Allergy (Verified 11/28/19 19:39) Past Medical History - Past Medical History Cardiac Medical History: Denies: Hx Coronary Artery Disease, Hx Heart Attack, Hx Hypertension Pulmonary Medical History: Denies: Hx Asthma, Hx Bronchitis, Hx COPD, Hx Pneumonia Neurological Medical History: Reports: Hx Migraine. Denies: Hx Cerebrovascular Accident, Hx Seizures GI Medical History: Reports: Hx Crohn's Disease, Hx Gastritis, Hx Gastroes ophageal Reflux Disease, Hx Hiatal Hernia, Hx Ulcerative Colitis Musculoskeltal Medical History: Denies Hx Arthritis Psychiatric Medical History: Reports: Hx Anxiety, Hx Depression Past Surgical History: Reports: Hx Orthopedic Surgery. Denies: Hx Hysterectomy - Immunizations Hx Diphtheria, Pertussis, Tetanus Vaccination: Yes Physical Exam - General General appearance: Alert Notes: Poor eye contact, lower pelvic tenderness - Neurological Carlos Coma Scale Eye Opening: Spontaneous Carlos Coma Scale Verbal: Oriented Carlos Coma Scale Motor: Obeys Commands [place] Coma Scale Total: 15 Doctor's Discharge - Discharge Referrals: WENDIE QUINTEROS, [employer] ATTENDANT [Primary Care Provider] - Follow up as needed
== END 2019-11-29 03:20 | disposition left against medical advice (07) ==
LOC: ER 19:09
DX: Z53.20 Procedure and treatment not carried out because of patient's decision for unspecified reasons (principal); R51 Headache; R10.9 Unspecified abdominal pain; R10.2 Pelvic and perineal pain; R10.30 Lower abdominal pain, unspecified; Z88.8 Allergy status to other drugs, medicaments and biological substances
CPT/HCPCS: 99281

== ENCOUNTER 2020-01-06 11:23 | Emergency (ER) | payer OTHER ==
--- NOTE | 2020-01-06 11:47 | ER Document Report ---
ED Medical Screen (RME) - General Chief Complaint: Seizure Stated Complaint: POSSIBLE SEIZURE/ARM NUMBNESS Time Seen by Provider: 01/06/20 11:44 Primary Care Provider: WENDIE QUINTEROS NP [Primary Care Provider] - Follow up as needed Information source: Patient Notes: Patient presents complaining of right upper extremity pain that primarily involve the first second and third fingers and radiates up the arm. Patient states she has had chronic and numbness off and on and her doctor states she may have carpal tunnel. Patient states that this morning she believes that she may have had about 3 small seizures. Patient denies any history of seizure although does have a history of MS. Patient reports a history of ulcers, migraine and endometriosis. I have greeted and performed a rapid initial assessment of this patient. A comprehensive ED assessment and evaluation of the patient, analysis of test results and completion of the medical decision making process will be conducted by additional ED providers. TRAVEL OUTSIDE OF THE [place] IN LAST 30 DAYS: No - Related Data Allergies/Adverse Reactions: sumatriptan [From Imitrex] Allergy (Intermediate, Verified 01/06/20 11:40) Difficulty breathing fluoxetine [From Prozac] Allergy (Mild, Verified 01/06/20 11:40) Anxiety fremanezumab-vfrm [From Ajovy Autoinjector] Allergy (Verified 01/06/20 11:40) rizatriptan Allergy (Verified 01/06/20 11:40) Past Medical History - Past Medical History Cardiac Medical History: Denies: Hx Coronary Artery Disease, Hx Heart Attack, Hx Hypertension Pulmonary Medical History: Denies: Hx Asthma, Hx Bronchitis, Hx COPD, Hx Pneumonia Neurological Medical History: Reports: Hx Migraine. Denies: Hx Cerebrovascular Accident, Hx Seizures GI Medical History: Reports: Hx Crohn's Disease, Hx Gastritis, Hx Gastroesophageal Reflux Disease, Hx Hiatal Hernia, Hx Ulcerative Colitis Musculoskeltal Medical History: Denies Hx Arthritis Psychiatric Medical History: Reports: Hx Anxiety, Hx Depression Past Surgical History: Reports: Hx Orthopedic Surgery. Denies: Hx Hysterectomy - Immunizations Hx Diphtheria, Pertussis, Tetanus Vaccination: Yes Physical Exam - Vital signs Vitals: Temp Pulse Resp BP Pulse Ox 99.0 F 95 18 126/76 H 98 01/06/20 11:28 01/06/20 11:28 01/06/20 11:28 01/06/20 11:28 01/06/20 11:28 - General General appearance: Appears well, Alert In distress: None Notes: Tenderness involving the right first second third finger that extends to forearm and upper arm - Neurological Neuro grossly intact: Yes Carlos Coma Scale Eye Opening: Spontaneous [place] Coma Scale Verbal: Oriented Carlos Coma Scale Motor: Obeys Commands [place] Coma Scale Total: 15 Course - Vital Signs Vital signs: Temp Pulse Resp BP Pulse Ox 99.0 F 95 18 126/76 H 98 01/06/20 11:28 01/06/20 11:28 01/06/20 11:28 01/06/20 11:28 01/06/20 11:28 Doctor's Discharge - Discharge Referrals: WENDIE QUINTEROS NP [Primary Care Provider] - Follow up as needed
[2020-01-06 13:19] LABS: ABSOLUTE EOSINOPHILS # (AUTO) 0.4 10^3/uL (0.0-0.6); ABSOLUTE LYMPHOCYTES (AUTO) 3.1 10^3/uL (0.5-4.7); ABSOLUTE MONOCYTES (AUTO) 0.8 10^3/uL (0.1-1.4); ABSOLUTE NEUT (AUTO) 3.2 10^3/uL (1.7-8.2); BASOPHILS % (AUTO) 0.4 % (0-2); EOSINOPHILS % (AUTO) 5.8 % (0-6); HEMATOCRIT 42.8 % (36.0-47.0); HEMOGLOBIN 14.3 g/dL (12.0-15.5); LYMPHOCYTES % (AUTO) 40.7 % (13-45); MEAN CORPUSCULAR HEMOGLOBIN 32.4 pg (27.0-33.4); MEAN CORPUSCULAR HGB CONC 33.3 g/dL (32.0-36.0); MEAN CORPUSCULAR VOLUME 97 fl (80-97); MONOCYTES % (AUTO) 10.4 % (3-13); PLATELET COUNT 401 10^3/uL (150-450); RED BLOOD COUNT 4.41 10^6/uL (3.72-5.28); RED CELL DISTRIBUTION WIDTH 13.7 % (11.5-14.0); SEGMENTED NEUTROPHILS % (AUTO) 42.7 % (42-78); TOTAL CELLS COUNTED % (AUTO) 100 %; WHITE BLOOD COUNT 7.5 10^3/uL (4.0-10.5)
[2020-01-06 13:36] LABS: ALBUMIN 3.6 g/dL (3.5-5.0); ALKALINE PHOSPHATASE 66 U/L (38-126); ANION GAP 7 (5-19); ASPARTATE AMINO TRANSFERASE 28 U/L (14-36); BILIRUBIN,DIRECT 0.2 mg/dL (0.0-0.4); BILIRUBIN,TOTAL 0.3 mg/dL (0.2-1.3); BLOOD UREA NITROGEN 19 mg/dL (7-20); CALCIUM 9.1 mg/dL (8.4-10.2); CARBON DIOXIDE 29 mmol/L (22-30); CHLORIDE 100 mmol/L (98-107); CREATINE KINASE 70 U/L (30-135); POTASSIUM 4.5 mmol/L (3.6-5.0); TOTAL PROTEIN 5.8 g/dL (6.3-8.2)
[2020-01-06 13:43] LABS: GLUCOSE 51 mg/dL (75-110)
[2020-01-06 16:20] LABS: APPEARANCE,URINE CLEAR; BILIRUBIN,URINE NEGATIVE (NEGATIVE); COLOR,URINE YELLOW; GLUCOSE, URINE NEGATIVE (NEGATIVE); KETONES,URINE NEGATIVE (NEGATIVE); LEUKOCYTE ESTERASE,URINE TRACE (NEGATIVE); NITRITE,URINE NEGATIVE (NEGATIVE); PROTEIN,URINE NEGATIVE (NEGATIVE); URINE SPECIFIC GRAVITY 1.016; UROBILINOGEN,URINE NEGATIVE mg/dL (<2.0)
--- NOTE | 2020-01-06 16:20 | ER Document Report ---
ED Seizure - General Chief Complaint: Seizure Stated Complaint: POSSIBLE SEIZURE/ARM NUMBNESS Time Seen by Provider: 01/06/20 11:44 Primary Care Provider: JUNIOR SCHAFFER MD [NO LOCAL MD] - Follow up tomorrow WENDIE QUINTEROS, DYNAMITE RECLAIMER [NURSE PRACTITIONER] - Follow up as needed Notes: Patient is a 34-year-old female who presents the emergency department with a chief complaint of a possible seizure. Patient states that she was lying in bed and she was awake, but stated that she felt she had 3 small seizures. Patient has a history of multiple sclerosis. Patient states that she has been having problems with carpal tunnel and has a nerve conduction study ordered for this week. - Related Data Allergies/Adverse Reactions: sumatriptan [From Imitrex] Allergy (Intermediate, Verified 01/06/20 11:40) Difficulty breathing fluoxetine [From Prozac] Allergy (Mild, Verified 01/06/20 11:40) Anxiety fremanezumab-vfrm [From Ajovy Autoinjector] Allergy (Verified 01/06/20 11:40) rizatriptan Allergy (Verified 01/06/20 11:40) Past Medical History - General Information source: Patient - Social History Smoking Status: Never Smoker Family History: Reviewed & Not Pertinent Patient has homicidal ideation: No - Past Medical History Cardiac Medical History: Denies: Hx Coronary Artery Disease, Hx Heart Attack, Hx Hypertension Pulmonary Medical History: Denies: Hx Asthma, Hx Bronchitis, Hx COPD, Hx Pneumonia Neurological Medical History: Reports: Hx Migraine. Denies: Hx Cerebrovascular Accident, Hx Seizures GI Medical History: Reports: Hx Crohn's Disease, Hx Gastritis, Hx Gastroesophageal Reflux Disease, Hx Hiatal Hernia, Hx Ulcerative Colitis Musculoskeletal Medical History: Denies Hx Arthritis Psychiatric Medical History: Reports: Hx Anxiety, Hx Depression Past Surgical History: Reports: Hx Orthopedic Surgery. Denies: Hx Hysterectomy - Immunizations Hx Diphtheria, Pertussis, Tetanus Vaccination: Yes Review of Systems - Review of Systems Notes: REVIEW OF SYSTEMS: CONSTITUTIONAL : Denies recent illness. Denies recent unintentional weight loss. Denies fever, chills, or sweats. EENT: Denies eye, ear, throat, or mouth pain, discharge, or symptoms. Denies nasal or sinus congestion. CARDIOVASCULAR: Denies chest pain. RESPIRATORY: Denies shortness of breath, cough, congestion, difficulty breathing, or wheezing. GASTROINTESTINAL: Denies nausea, vomiting, and diarrhea. Denies abdominal pain. Denies constipation. GENITOURINARY: Denies difficulty urinating, burning, blood in urine, urgency or frequency. MUSCULOSKELETAL: Denies neck and back pain. Denies joint pain or swelling. SKIN: Denies rash, itchiness, or lesions HEMATOLOGIC : Denies easy bruising or bleeding. LYMPHATIC: Denies swollen, painful, enlarged glands. NEUROLOGICAL: See HPI. PSYCHIATRIC: Denies stress, anxiety, alteration in sleep patterns, or depression. All other systems reviewed and negative. Physical Exam - Vital signs Vitals: Temp Pulse Resp BP Pulse Ox 99.0 F 95 18 126/76 H 98 01/06/20 11:28 01/06/20 11:28 01/06/20 11:28 01/06/20 11:28 01/06/20 11:28 - Notes Notes: PHYSICAL EXAMINATION: GENERAL: Appears well, healthy, well-nourished, no acute distress. HEAD: Normocephalic, atraumatic. EYES: PERRL, conjunctiva normal, all extraocular movements intact, sclera nonicteric ENT: Moist mucous membranes. NECK: Supple, no noticeable swelling, redness, rash. Normal range of motion. LUNGS: Equal breath sounds bilaterally and clear to auscultation. No wheezes rales or rhonchi. CARDIOVASCULAR: S1-S2, regular rate, regular rhythm. Radial pulses 2+, normal. ABDOMEN: Normoactive bowel sounds. Soft, nontender, no guarding, no rebound tenderness, and no masses palpated. EXTREMITIES: Normal strength and range of motion, no pitting or edema. No cyanosis. NEUROLOGICAL: Moves all extremities upon command. Strength 5/5 in all extremities. Slight right arm and right leg weakness and drift noted when lifting arm and leg. PSYCH: Normal mood, normal affect. SKIN: Warm, dry. No rash, lesions, ulcerations noted. Normal skin turgor. Course - Re-evaluation Re-evalutation: 01/06/20 16:20 Since this is a possible new onset seizure. It sounds in the patient might have had a focal seizure. We will send patient for CT of the head to rule out any intracranial bleed or mass. 01/06/20 17:04 I was called by Dr. Daley, the radiologist. She noted the on the right side of the patient's head there was an old stroke. She recommends an MRI of the head with and without contrast. I spoke with the patient and the patient stated that about 2 months ago, she ended up falling and hitting her head, but did not come to the emergency department. She stated that she vomited after that. She saw her neurologist after that incident, but did not have neurological deficits at that time. - Vital Signs Vital signs: Temp Pulse Resp BP Pulse Ox 99.3 F 96 14 131/85 H 99 01/06/20 20:06 01/06/20 20:06 01/06/20 20:06 01/06/20 20:06 01/06/20 20:06 - Laboratory Result Diagrams: 01/06/20 12:33 01/06/20 12:33 Laboratory results interpreted by me: 01/06/20 01/06/20 12:33 12:33 Sodium 135.8 L Glucose 51 L Total Protein 5.8 L Ur Leukocyte Esterase TRACE H - EKG Interpretation by Me Additional EKG results interpreted by me: 01/06/20 Sinus rhythm. Rate 86. MN 124; QRS 70; QT 360; QTc 430. No ST elevations or depressions noted. Discharge - Discharge Clinical Impression: Multiple sclerosis Arm pain Qualifiers: Laterality: right Qualified Code(s): M79.601 - Pain in right arm Condition: Stable Disposition: HOME, SELF-CARE Additional Instructions: You were seen today in the emergency department for seizure-like activity at home. Please see your neurologist tomorrow. Your MRI shows that there are no changes. See if you can get an EEG sometime this week with your neurologist. This is most likely a multiple sclerosis flare. You are being started on prednisone. This should help you with your arm pain. Prescriptions: Prednisone [Deltasone 20 mg Tablet] 3 tab PO DAILY 5 Days #15 tablet Referrals: WENDIE QUINTEROS NP [NURSE PRACTITIONER] - Follow up as needed JUNIOR SCHAFFER MD [NO LOCAL MD] - Follow up tomorrow
--- NOTE | 2020-01-06 17:05 | RADIOLOGY REPORT (SQ) ---
EXAM DESCRIPTION: CT HEAD WITHOUT IMAGES COMPLETED DATE/TIME: 01/06/2020 4:38 pm REASON FOR STUDY: right sided weakness COMPARISON: None. TECHNIQUE: Axial images acquired through the brain without intravenous contrast. Images reviewed wi th bone, brain and subdural windows. Additional sagittal and coronal reconstructions were generated. Images stored on PACS. All CT scanners at this facility use dose modulation, iterative reconstruction, and/or weight based d osing when appropriate to reduce radiation dose to as low as reasonably achievable (ALARA). [facility]: Dose Right [facility]: CareDose [facility]: Dose Right [facility]: Teradose 4D [facility]: [employer] RADIATION DOSE: CT Rad equipment meets quality standard of care and radiation dose reduction techniq ues were employed. CTDIvol: 53.2 mGy. DLP: 991 mGy-cm. mGy. LIMITATIONS: None. FINDINGS: VENTRICLES: Normal size and contour. CEREBRUM: Focal encephalomalacia present right frontal deep periventricular white matter about 12 mm in size, best shown on axial image 19 and coronal image 34. This could represent an old infarct. De myelinating disease could cause this appearance. Edema from tumor is considered much less likely fin cyndy discussed with Ramila Mckenna in the emergency room No CT evidence of acute intracranial hemorrhage. No large territory acute ischemic change. No mass effect or midline shift CEREBELLUM: No masses. No hemorrhage. No alteration of density. No evidence for acute infarction. EXTRAAXIAL SPACES: No fluid collections. No masses. ORBITS AND GLOBE: No intra- or extraconal masses. Normal contour of globe without masses. CALVARIUM: No fracture. PARANASAL SINUSES: No fluid or mucosal thickening. SOFT TISSUES: No mass or hematoma. OTHER: No other significant finding. IMPRESSION: Deep right frontal white matter encephalomalacia. Differential is MS versus infarcts. Edema from tumor is considered unlikely. Findings discussed with the emergency room practitioner EVIDENCE OF ACUTE STROKE: NO. COMMENT: Quality ID # [id number]: Final reports with documentation of one or more dose reduction techniques (e.g., Automated exposure control, adjustment of the mA and/or kV according to patient size, use of iterative reconstruction technique) TECHNICAL DOCUMENTATION: JOB ID: [id number] 2010 [employer]- All Rights Reserved Reading location - IP/workstation name: [id number]
--- NOTE | 2020-01-06 19:31 | RADIOLOGY REPORT (SQ) ---
EXAM DESCRIPTION: MRI HEAD COMBO IMAGES COMPLETED DATE/TIME: 01/06/2020 7:07 pm REASON FOR STUDY: right sided weakness; Hx of MS COMPARISON: CT brain 01/06/2020 TECHNIQUE: Multiplanar imaging includes noncontrasted T1, T2, FLAIR, diffusion with ADC map and post gadolinium contrast T1 sequences. Images stored on PACS. CONTRAST TYPE AND DOSE: 10 mL Prohance. RENAL FUNCTION: Not indicated. ACR Type II contrast agent associated with few, if any, unconfounded cases of NSF LIMITATIONS: None. FINDINGS: ANATOMY: No congenital anomalies. Normal vascular flow voids. Pituitary fossa normal. CSF SPACES: Normal in size and contour. No hemorrhage. CEREBRUM: Diffusion-weighted images are negative for ischemic change 12 mm focus of encephalomalacia right frontal deep periventricular white matter, unchanged CT earlier today. This is abnormal but nonspecific could represent a demyelinating plaque or old infarct. No acute intracranial hemorrhage mass effect or midline shift No abnormal contrast enhancement. POSTERIOR FOSSA: No signal alteration. No hemorrhage. No edema, masses, or mass effect. Internal clarissa tory canals, cerebellopontine angles, mastoids normal. No enhancing lesions. No abnormal enhancement post contrast. DIFFUSION IMAGING: Negative for acute or subacute infarction. ORBITS: No masses. Globes normal. PARANASAL SINUSES: Small mucous or serous retention cyst floor right maxillary sinus OTHER: No other significant finding. IMPRESSION: No MRI evidence of acute ischemic change 12 mm focus of encephalomalacia the deep right frontal pericallosal white matter, demyelinating disea se versus old infarct. EVIDENCE OF ACUTE STROKE: NO. TECHNICAL DOCUMENTATION: JOB ID: [id number] 2010 [employer]- All Rights Reserved Reading location - IP/workstation name: [id number]
[2020-01-06] MEDS ORDERED: MORPHINE SULFATE 10 MG/ML INJ IV ONE (19:39)
[2020-01-06] MEDS ORDERED: PREDNISONE 20 MG TABLET PO ONE (19:44)
[2020-01-06 20:10] VITALS: BP 131/85
--- NOTE | 2020-01-06 20:53 | EKG REPORT ---
SEVERITY:- NORMAL ECG - SINUS RHYTHM : Confirmed by: Ester Damon MD 06-Jan-2020 20:53:02
== END 2020-01-06 20:07 | disposition home or self-care (01) ==
LOC: ER 11:23
DX: M79.601 Pain in right arm (principal); G35 Multiple sclerosis; R56.9 Unspecified convulsions; R20.0 Anesthesia of skin; Z88.8 Allergy status to other drugs, medicaments and biological substances
CPT/HCPCS: 93005; 99285; 96374; 36415; 82550; 84703; 85025; 80053; 81001; 70553; 70450; 93010; A9576; J2270; J7512

== ENCOUNTER 2020-01-21 19:29 | Emergency (ER) | payer OTHER ==
[2020-01-21] MEDS ORDERED: METOCLOPRAMIDE HCL INJ/PF 10 MG/2 ML SDV IV ONE (20:05)
[2020-01-21] MEDS ORDERED: KETOROLAC TROMETHAMINE INJ/PF 30 MG/1 ML SDV IV ONE (20:05)
[2020-01-21] MEDS ORDERED: ONDANSETRON 4 MG TAB.RAPDIS PO ONE (20:05)
[2020-01-21] MEDS ORDERED: NORMAL SALINE 1000 ML 1,000 ML IV ONE (20:05)
[2020-01-21] MEDS ORDERED: DIPHENHYDRAMINE HCL 50 MG/ML VIAL IV ONE (20:05)
--- NOTE | 2020-01-21 20:09 | ER Document Report ---
ED Medical Screen (RME) - General Chief Complaint: Headache Stated Complaint: MIGRAINE Time Seen by Provider: 01/21/20 19:56 Primary Care Provider: DAMIÁN SAGASTUME PA-C [Primary Care Provider] - Follow up as needed Notes: Patient is a 34-year-old female with a history of MS who presents emergency department with a chief complaint of migraine. Patient does have a history of migraines and reports feeling the same. She has taken multiple medications at home including Fioricet without much relief. Does have some photosensitivity. Reports nausea without vomiting. Patient reports that she has received the zahraa ktail in the emergency department before which did help with her discomfort. Patient is also currently on prednisone for MS flare. She was taking 60 mg for 2 weeks and has not decreased to 40 mg daily. TRAVEL OUTSIDE OF THE [place] IN LAST 30 DAYS: No - Related Data Allergies/Adverse Reactions: sumatriptan [From Imitrex] Allergy (Intermediate, Verified 01/06/20 11:40) Difficulty breathing fluoxetine [From Prozac] Allergy (Mild, Verified 01/06/20 11:40) Anxiety fremanezumab-vfrm [From Ajovy Autoinjector] Allergy (Verified 01/06/20 11:40) rizatriptan Allergy (Verified 01/06/20 11:40) Past Medical History - Past Medical History Cardiac Medical History: Denies: Hx Coronary Artery Disease, Hx Heart Attack, Hx Hypertension Pulmonary Medical History: Denies: Hx Asthma, Hx Bronchitis, Hx COPD, Hx Pneumonia Neurological Medical History: Reports: Hx Migraine. Denies: Hx Cerebrovascular Accident, Hx Seizures GI Medical History: Reports: Hx Crohn's Disease, Hx Gastritis, Hx Ga stroesophageal Reflux Disease, Hx Hiatal Hernia, Hx Ulcerative Colitis Musculoskeltal Medical History: Denies Hx Arthritis Psychiatric Medical History: Reports: Hx Anxiety, Hx Depression Past Surgical History: Reports: Hx Orthopedic Surgery. Denies: Hx Hysterectomy - Immunizations Hx Diphtheria, Pertussis, Tetanus Vaccination: Yes Physical Exam - Vital signs Vitals: Temp Pulse Resp BP Pulse Ox 99.4 F 110 H 16 137/79 H 99 01/21/20 19:35 01/21/20 19:35 01/21/20 19:35 01/21/20 19:35 01/21/20 19:35 - HEENT Pupils: PERRL Course - Re-evaluation Re-evalutation: 01/21/20 20:08 Will initiate IV fluids as she was slightly tachycardic as well as the migraine cocktail to include Reglan, Benadryl, Toradol. Since the patient remains in triage I will go ahead and give Zofran ODT. Patient no acute distress. I have greeted and performed a rapid initial assessment of this patient. A com prehensive ED assessment and evaluation of the patient, analysis of test results and completion of the medical decision making process will be conducted by additional ED providers. - Vital Signs Vital signs: Temp Pulse Resp BP Pulse Ox 99.4 F 110 H 16 137/79 H 99 01/21/20 19:35 01/21/20 19:35 01/21/20 19:35 01/21/20 19:35 01/21/20 19:35 Doctor's Discharge - Discharge Referrals: DAMIÁN SAGASTUME PA-C [Primary Care Provider] - Follow up as needed
[2020-01-22] MEDS ORDERED: KETOROLAC TROMETHAMINE INJ/PF 30 MG/1 ML SDV IV ONE (01:30)
[2020-01-22] MEDS ORDERED: METOCLOPRAMIDE HCL INJ/PF 10 MG/2 ML SDV IV ONE (01:30)
[2020-01-22] MEDS ORDERED: DIPHENHYDRAMINE HCL 50 MG/ML VIAL IV ONE (01:30)
[2020-01-22] MEDS ORDERED: FAMOTIDINE INJ/PF 20 MG/2 ML SDV IV ONE (01:30)
[2020-01-22] MEDS ORDERED: RINGERS SOLUTION,LACTATED 1,000 ML IV ONE (01:30)
--- NOTE | 2020-01-22 01:51 | ER Document Report ---
ED General - General Chief Complaint: Headache Stated Complaint: MIGRAINE Time Seen by Provider: 01/21/20 19:56 Primary Care Provider: DAMIÁN SAGASTUME PA-C [Primary Care Provider] - Follow up as needed TRAVEL OUTSIDE OF THE [place] IN LAST 30 DAYS: No - HPI Notes: Patient is a 34-year-old female with a history of multiple sclerosis, migraine headaches, who presents to the ER for evaluation of a migraine. She states that she has had this headache for about the last 7 days. She was seen by her neurologist, given oral Toradol, has not really had any relief. She states her pain is on the right side, primarily in the right frontal area, radiates down into her neck area. She has had photophobia, phonophobia, associated nausea. She states that she also has abdominal pain. She states she has a history of ulcers. She states she has been taking "a lot" of knts-amh-rghlfre Excedrin, states she knows it is more than as directed. She states that her pain was so bad several days ago that she had a syncopal episode. - Related Data Allergies/Adverse Reactions: sumatriptan [From Imitrex] Allergy (Intermediate, Verified 01/06/20 11:40) Difficulty breathing fluoxetine [From Prozac] Allergy (Mild, Verified 01/06/20 11:40) Anxiety fremanezumab-vfrm [From Ajovy Autoinjector] Allergy (Verified 01/06/20 11:40) rizatriptan Allergy (Verified 01/06/20 11:40) Past Medical History - General Information source: Patient - Social History Smoking Status: Never Smoker Family History: Reviewed & Not Pertinent - Past Medical History Cardiac Medical History: Denies: Hx Coronary Artery Disease, Hx Heart Attack, Hx Hypertension Pulmonary Medical History: Denies: Hx Asthma, Hx Bronchitis, Hx COPD, Hx Pneumonia Neurological Medical History: Reports: Hx Migraine, Other - Multiple sclerosis. Denies: Hx Cerebrovascular Accident, Hx Seizures GI Medical History: Reports: Hx Crohn's Disease, Hx Gastritis, Hx Gastroesophageal Reflux Disease, Hx Hiatal Hernia, Hx Ulcerative Colitis Musculoskeletal Medical History: Denies Hx Arthritis Psychiatric Medical History: Reports: Hx Anxiety, Hx Depression Past Surgical History: Reports: Hx Orthopedic Surgery. Denies: Hx Hysterectomy - Immunizations Hx Diphtheria, Pertussis, Tetanus Vaccination: Yes Review of Systems - Review of Systems Constitutional: No symptoms reported EENT: No symptoms reported Cardiovascular: See HPI Respiratory: No symptoms reported Gastrointestinal: See HPI Genitourinary: No symptoms reported Musculoskeletal: No symptoms reported Skin: No symptoms reported Neurological/Psychological: See HPI Physical Exam - Vital signs Vitals: Temp Pulse Resp BP Pulse Ox 99.4 F 110 H 16 137/79 H 99 01/21/20 19:35 01/21/20 19:35 01/21/20 19:35 01/21/20 19:35 01/21/20 19:35 - Notes Notes: Vital signs reviewed, please refer to chart. Head is normocephalic, atraumatic. Pupils equal round, reactive to light. Neck is supple without meningismus. Heart is regular rate and rhythm. Lungs are clear to auscultation bilaterally. Abdomen is soft, nontender, normoactive bowel sounds throughout. Extremities without cyanosis, clubbing. Posterior calves are nontender. Peripheral pulses are equal. Skin is warm and dry. Patient is awake, alert, oriented x3. Cranial nerves II - XII are grossly intact without focal neurological deficits. Strength is plus 5 out of 5 bilateral upper and lower extremities. Sensation is intact. Reflexes symmetrical. Intact kszbmr-jukp-vhevvn, rapid alternating movements, ldgd-yc-speh. Course - Re-evaluation Re-evalutation: 01/22/20 01:48 Patient presents to the emergency department for evaluation. She has a migraine headache, which she states is typical of her normal migraines. She has had it for several days. She does not have any nuchal rigidity. She has actually been seen by her neurologist for this precise migraine. She initially had medications ordered through triage, unfortunately they were all IV, and she did not get a room for several hours. I did order Toradol, Reglan, Benadryl, fluids, Pepcid. I ordered laboratory investigations, including CBC, CMP, lipase, urinalysis, urine drug screen. EKG ordered as well. Patient is currently stable, we will continue to monitor. 01/22/20 02:49 Patient feeling significantly improved after medication. Laboratory investigations largely unremarkable, although CBC is still pending. I would not be surprised by mild leukocytosis given the fact that she is currently on prednisone. Patient's pain has been controlled with medications. She Merritt follows with GI, she is encouraged to follow-up with her primary care provider as well as her neurologist this week. She voiced understanding. She is to return to the ED with worsening or new concerning symptoms of any sort. - Vital Signs Vital signs: Temp Pulse Resp BP Pulse Ox 98.6 F 81 24 H 140/90 H 99 01/22/20 01:18 01/22/20 01:18 01/21/20 23:42 01/22/20 01:18 01/22/20 01:18 - Laboratory Result Diagrams: 01/22/20 01:55 01/22/20 01:55 Laboratory results interpreted by me: 01/22/20 01/22/20 01:55 01:55 WBC 10.7 H RDW 14.1 H Seg Neuts % (Manual) 86 H Monocytes % (Manual) 1 L Abs Neuts (Manual) 9.2 H Glucose 134 H Total Protein 5.5 L Acetaminophen < 10 L - EKG Interpretation by Me Additional EKG results interpreted by me: 01/22/20 02:50 Sinus mechanism with a rate of 74 bpm. Normal axis and intervals. No acute ST changes concerning for ischemia or infarction. No old studies immediately available for comparison. Discharge - Discharge Clinical Impression: Generalized abdominal pain Migraine Qualifiers: Migraine type: unspecified Intractability: not intractable Syncope Qualifiers: Syncope type: unspecified Qualified Code(s): R55 - Syncope and collapse Condition: Stable Disposition: HOME, SELF-CARE Instructions: Abdominal Pain ([facility]), Headache ([facility]), Reglan ([facility]), Syncopal Episode ([facility]) Additional Instructions: Rest, stay well-hydrated. Follow-up with your primary care provider, fireperson, neurologist in the next 1 to 2 weeks. Continue your home medications as prescribed. If you develop worsening or new concerning symptoms of any sort, please return immediately to the emergency department for reevaluation. Referrals: DAMIÁN SAGASTUME PA-C [Primary Care Provider] - Follow up as needed
[2020-01-22 02:12] LABS: APPEARANCE,URINE CLEAR; BILIRUBIN,URINE NEGATIVE (NEGATIVE); COLOR,URINE YELLOW; GLUCOSE, URINE NEGATIVE (NEGATIVE); KETONES,URINE NEGATIVE (NEGATIVE); LEUKOCYTE ESTERASE,URINE NEGATIVE (NEGATIVE); NITRITE,URINE NEGATIVE (NEGATIVE); PROTEIN,URINE NEGATIVE (NEGATIVE); URINE SPECIFIC GRAVITY 1.016; UROBILINOGEN,URINE NEGATIVE mg/dL (<2.0)
[2020-01-22 02:27] LABS: URINE AMPHETAMINES SCREEN NEGATIVE; URINE BARBITURATES SCREEN UNCONFIRMED POSITIVE; URINE BENZODIAZEPINES SCREEN NEGATIVE; URINE COCAINE SCREEN NEGATIVE; URINE MARIJUANA (THC) SCREEN NEGATIVE; URINE METHADONE SCREEN NEGATIVE; URINE PHENCYCLIDINE SCREEN NEGATIVE
[2020-01-22 02:29] LABS: ACETAMINOPHEN < 10 ug/mL (10-30); ALBUMIN 3.5 g/dL (3.5-5.0); ALKALINE PHOSPHATASE 64 U/L (38-126); ANION GAP 6 (5-19); ASPARTATE AMINO TRANSFERASE 24 U/L (14-36); BILIRUBIN,DIRECT 0.2 mg/dL (0.0-0.4); BILIRUBIN,TOTAL 0.3 mg/dL (0.2-1.3); BLOOD UREA NITROGEN 16 mg/dL (7-20); CALCIUM 8.6 mg/dL (8.4-10.2); CARBON DIOXIDE 27 mmol/L (22-30); CHLORIDE 106 mmol/L (98-107); GLUCOSE 134 mg/dL (75-110); TOTAL PROTEIN 5.5 g/dL (6.3-8.2)
[2020-01-22 02:48] LABS: HEMATOCRIT 44.5 % (36.0-47.0); HEMOGLOBIN 15.2 g/dL (12.0-15.5); MEAN CORPUSCULAR HEMOGLOBIN 33.1 pg (27.0-33.4); MEAN CORPUSCULAR HGB CONC 34.1 g/dL (32.0-36.0); MEAN CORPUSCULAR VOLUME 97 fl (80-97); PLATELET COUNT 444 10^3/uL (150-450); RED BLOOD COUNT 4.58 10^6/uL (3.72-5.28); RED CELL DISTRIBUTION WIDTH 14.1 % (11.5-14.0); WHITE BLOOD COUNT 10.7 10^3/uL (4.0-10.5)
[2020-01-22 02:51] LABS: ABSOLUTE LYMPHOCYTES# (MANUAL) 1.4 10^3/uL (0.5-4.7); ABSOLUTE MONOCYTES # (MANUAL) 0.1 10^3/uL (0.1-1.4); BASOPHILS % (MANUAL) 0 % (0-2); EOSINOPHILS % (MANUAL) 0 % (0-6); LYMPHOCYTES % (MANUAL) 13 % (13-45); MONOCYTES % (MANUAL) 1 % (3-13); SEGMENTED NEUTROPHILS % (MAN) 86 % (42-78); TOTAL CELLS COUNTED 100
[2020-01-22 02:52] LABS: ANISOCYTOSIS SLIGHT; OVALOCYTES SLIGHT; PLATELET COMMENT ADEQUATE; POIKILOCYTOSIS SLIGHT; TOXIC GRANULATION 1+
[2020-01-22 04:04] VITALS: BP 124/76
--- NOTE | 2020-01-22 09:11 | EKG REPORT ---
SEVERITY:- NORMAL ECG - SINUS RHYTHM : Confirmed by: Estefany Yeung 22-Jan-2020 09:11:17
== END 2020-01-22 04:02 | disposition home or self-care (01) ==
LOC: ER 19:29
DX: G43.909 Migraine, unspecified, not intractable, without status migrainosus (principal); R10.84 Generalized abdominal pain; R55 Syncope and collapse
CPT/HCPCS: 93005; 96376; 99284; 96361; 96374; 96375; 36415; 83690; 80307 ×2; 84703; 85025; 80053; 81001; 93010; J1200; S0119; J1885; J2765; J7120; S0028

== ENCOUNTER 2020-03-31 13:46 | Emergency (ER) | payer OTHER ==
--- NOTE | 2020-03-31 15:09 | ER Document Report ---
ED Medical Screen (RME) - General Chief Complaint: Abdominal Pain Stated Complaint: ABDOMINAL PAIN,CHEST PAIN Time Seen by Provider: 03/31/20 15:02 Primary Care Provider: DAMIÁN SAGASTUME PA-C [Primary Care Provider] - Follow up as needed TRAVEL OUTSIDE OF THE [place] IN LAST 30 DAYS: No - HPI Notes: Patient is a 35-year-old female with a history of MS, tachycardia, anxiety, and peptic ulcers who presents with chest pain and abdominal pain that began a few hours ago. Patient describes her chest pain is substernal and describes it as a squeezing and burning. She reports nausea and constipation but denies any vomiting or diarrhea. She said her last normal bowel movement was 1 week ago. - Related Data Allergies/Adverse Reactions: sumatriptan [From Imitrex] Allergy (Intermediate, Verified 03/31/20 14:59) Difficulty breathing fluoxetine [From Prozac] Allergy (Mild, Verified 03/31/20 14:59) Anxiety fremanezumab-vfrm [From Ajovy Autoinjector] Allergy (Verified 03/31/20 14:59) rizatriptan Allergy (Verified 03/31/20 14:59) Past Medical History - Past Medical History Cardiac Medical History: Denies: Hx Coronary Artery Disease, Hx Heart Attack, Hx Hypertension Pulmonary Medical History: Denies: Hx Asthma, Hx Bronchitis, Hx COPD, Hx Pneumonia Neurological Medical History: Reports: Hx Migraine. Denies: Hx Cerebrovascular Accident, Hx Seizures GI Medical History: Reports: Hx Crohn's Disease, Hx Gastritis, Hx Gastroesophageal Reflux Disease, Hx Hiatal Hernia, Hx Ulcerative Colitis Musculoskeltal Medical History: Denies Hx Arthritis Psychiatric Medical History: Reports: Hx Anxiety, Hx Depression Past Surgical History: Reports: Hx Orthopedic Surgery. Denies: Hx Hysterectomy - Immunizations Hx Diphtheria, Pertussis, Tetanus Vaccination: Yes Physical Exam - Vital signs Vitals: Temp Pulse Resp BP Pulse Ox 98.1 F 104 H 18 117/77 95 03/31/20 14:02 03/31/20 14:02 03/31/20 14:02 03/31/20 14:02 03/31/20 14:02 Interpretation: Tachycardic - Abdominal Tenderness: Nontender Course - Re-evaluation Re-evalutation: I have greeted and performed a rapid initial assessment of this patient. A comprehensive ED assessment and evaluation of the patient, analysis of test results and completion of medical decision making process will be conducted by an additional ED providers. - Vital Signs Vital signs: Temp Pulse Resp BP Pulse Ox 98.1 F 104 H 18 117/77 95 03/31/20 14:02 03/31/20 14:02 03/31/20 14:02 03/31/20 14:02 03/31/20 14:02 Doctor's Discharge - Discharge Referrals: DAMIÁN SAGASTUME PA-C [Primary Care Provider] - Follow up as needed
--- NOTE | 2020-03-31 16:05 | RADIOLOGY REPORT (SQ) ---
EXAM DESCRIPTION: KUB/ABDOMEN (SINGLE VIEW) IMAGES COMPLETED DATE/TIME: 03/31/2020 3:58 pm REASON FOR STUDY: constipation COMPARISON: None. NUMBER OF VIEWS: One view. TECHNIQUE: Supine radiographic image of the abdomen acquired. LIMITATIONS: None. FINDINGS: BOWEL GAS PATTERN: Nonobstructive gas pattern. Stool throughout the colon consistent with constipation. CALCIFICATIONS: No suspicious calcifications. SOFT TISSUES: No gross mass or suggestion of organomegaly. HARDWARE: Clips in the right upper quadrant consistent with prior cholecystectomy. BONES: No acute fracture. No worrisome bone lesions. OTHER: No other significant finding. IMPRESSION: Moderate constipation. No other significant findings. TECHNICAL DOCUMENTATION: JOB ID: [id number] 2010 [employer]- All Rights Reserved Reading location - IP/workstation name: [email or web address]
--- NOTE | 2020-03-31 16:05 | RADIOLOGY REPORT (SQ) ---
EXAM DESCRIPTION: CHEST SINGLE VIEW IMAGES COMPLETED DATE/TIME: 03/31/2020 3:58 pm REASON FOR STUDY: chest pain COMPARISON: None. EXAM PARAMETERS: NUMBER OF VIEWS: One view. TECHNIQUE: Single frontal radiographic view of the chest acquired. RADIATION DOSE: NA LIMITATIONS: None. FINDINGS: LUNGS AND PLEURA: No opacities, masses or pneumothorax. No pleural effusion. MEDIASTINUM AND HILAR STRUCTURES: No masses. Contour normal. HEART AND VASCULAR STRUCTURES: Heart normal in size. Normal vasculature. BONES: No acute findings. HARDWARE: None in the chest. OTHER: No other significant finding. IMPRESSION: NO ACUTE RADIOGRAPHIC FINDING IN THE CHEST. TECHNICAL DOCUMENTATION: JOB ID: [id number] 2010 [employer]- All Rights Reserved Reading location - IP/workstation name: [email or web address]
[2020-03-31 16:25] LABS: AMORPHOUS SEDIMENT,URINE TRACE /HPF; APPEARANCE,URINE SLIGHTLY-CLOUDY; BILIRUBIN,URINE NEGATIVE (NEGATIVE); COLOR,URINE YELLOW; GLUCOSE, URINE NEGATIVE (NEGATIVE); KETONES,URINE NEGATIVE (NEGATIVE); LEUKOCYTE ESTERASE,URINE NEGATIVE (NEGATIVE); NITRITE,URINE NEGATIVE (NEGATIVE); PROTEIN,URINE NEGATIVE (NEGATIVE); UROBILINOGEN,URINE NEGATIVE mg/dL (<2.0)
[2020-03-31 16:29] LABS: ABSOLUTE EOSINOPHILS # (AUTO) 0.2 10^3/uL (0.0-0.6); ABSOLUTE LYMPHOCYTES (AUTO) 2.6 10^3/uL (0.5-4.7); ABSOLUTE MONOCYTES (AUTO) 0.6 10^3/uL (0.1-1.4); ABSOLUTE NEUT (AUTO) 5.4 10^3/uL (1.7-8.2); ALBUMIN 3.7 g/dL (3.5-5.0); ALKALINE PHOSPHATASE 59 U/L (38-126); ANION GAP 11 (5-19); ASPARTATE AMINO TRANSFERASE 20 U/L (14-36); BASOPHILS % (AUTO) 0.5 % (0-2); BILIRUBIN,DIRECT 0.1 mg/dL (0.0-0.4); BILIRUBIN,TOTAL 0.2 mg/dL (0.2-1.3); BLOOD UREA NITROGEN 17 mg/dL (7-20); CALCIUM 9.4 mg/dL (8.4-10.2); CARBON DIOXIDE 21 mmol/L (22-30); CHLORIDE 110 mmol/L (98-107); EOSINOPHILS % (AUTO) 2.6 % (0-6); GLUCOSE 98 mg/dL (75-110); HEMATOCRIT 43.7 % (36.0-47.0); HEMOGLOBIN 14.6 g/dL (12.0-15.5); LYMPHOCYTES % (AUTO) 29.2 % (13-45); MEAN CORPUSCULAR HEMOGLOBIN 31.1 pg (27.0-33.4); MEAN CORPUSCULAR HGB CONC 33.3 g/dL (32.0-36.0); MEAN CORPUSCULAR VOLUME 93 fl (80-97); MONOCYTES % (AUTO) 6.3 % (3-13); PLATELET COUNT 415 10^3/uL (150-450); POTASSIUM 4.7 mmol/L (3.6-5.0); RED CELL DISTRIBUTION WIDTH 14.7 % (11.5-14.0); SEGMENTED NEUTROPHILS % (AUTO) 61.4 % (42-78); TOTAL CELLS COUNTED % (AUTO) 100 %; TOTAL PROTEIN 6.1 g/dL (6.3-8.2); WHITE BLOOD COUNT 8.8 10^3/uL (4.0-10.5)
--- NOTE | 2020-03-31 17:39 | EKG REPORT ---
SEVERITY:- OTHERWISE NORMAL ECG - SINUS TACHYCARDIA : Confirmed by: Ovi Ford MD 31-Mar-2020 17:37:21
--- NOTE | 2020-03-31 19:24 | ER Document Report ---
ED General - General Chief Complaint: Abdominal Pain Stated Complaint: ABDOMINAL PAIN,CHEST PAIN Time Seen by Provider: 03/31/20 15:02 Primary Care Provider: DAMIÁN SAGASTUME PA-C [Primary Care Provider] - Follow up as needed TRAVEL OUTSIDE OF THE [place] IN LAST 30 DAYS: No - HPI Notes: Chief complaint: Chest pain and left upper abdominal pain History of present illness: 35-year-old female with history of multiple sclerosis and irritable bowel syndrome as well as a past history of peptic ulcer disease presents now with 2 to 3-day history of worsening left upper quadrant abdominal pain radiating up into her chest. This is associated with a sensation of fullness at times. No vomiting. Says she is eating and drinking normally. Has not had a bowel movement about 1 week. She is not currently taking any type of laxative. She says she is not on any narcotic pain medication. She has been on disability for a number of years due to her history of multiple sclerosis. She is followed by Dr. Varghese. She denies any known history of cardiac disease. She is not diabetic or hypertensive and does not have any known history of hyperlipidemia. She is a non-smoker. Father has a history of CAD developing in his 50s. Her discomfort is described as a dull pressure which is relatively constant and not affected by physical activity. No shortness of breath. No history of thromboembolic disease. No dyspnea or hemoptysis. - Related Data Allergies/Adverse Reactions: sumatriptan [From Imitrex] Allergy (Intermediate, Verified 03/31/20 14:59) Difficulty breathing fluoxetine [From Prozac] Allergy (Mild, Verified 03/31/20 14:59) Anxiety fremanezumab-vfrm [From Ajovy Autoinjector] Allergy (Verified 03/31/20 14:59) rizatriptan Allergy (Verified 03/31/20 14:59) Past Medical History - General Information source: Patient - Social History Smoking Status: Never Smoker Frequency of alcohol use: None Drug Abuse: None Family History: Reviewed & Not Pertinent Patient has homicidal ideation: No - Past Medical History Cardiac Medical History: Denies: Hx Coronary Artery Disease, Hx Heart Attack, Hx Hypertension Pulmonary Medical History: Denies: Hx Asthma, Hx Bronchitis, Hx COPD, Hx Pneumonia Neurological Medical History: Reports: Hx Migraine. Denies: Hx Cerebrovascular Accident, Hx Seizures Endocrine Medical History: Denies: Hx Diabetes Mellitus Type 1, Hx Diabetes Me llitus Type 2 GI Medical History: Reports: Hx Crohn's Disease, Hx Gastritis, Hx Gastroesophageal Reflux Disease, Hx Hiatal Hernia, Hx Ulcerative Colitis Musculoskeletal Medical History: Denies Hx Arthritis Psychiatric Medical History: Reports: Hx Anxiety, Hx Depression Past Surgical History: Reports: Hx Orthopedic Surgery. Denies: Hx Hysterectomy - Immunizations Hx Diphtheria, Pertussis, Tetanus Vaccination: Yes Review of Systems - Review of Systems Notes: Constitutional: Negative for fever. HENT: Negative for sore throat. Eyes: Negative for visual changes. Cardiovascular: As per HPI. Respiratory: Negative for shortness of breath. Gastrointestinal: As per HPI. Genitourinary: Negative for dysuria. Musculoskeletal: Negative for back pain. Skin: Negative for rash. Neurological: Negative for headaches, weakness or numbness. 10 point ROS negative except as marked above and in HPI. Physical Exam - Vital signs Vitals: Temp Pulse Resp BP Pulse Ox 98.1 F 104 H 18 117/77 95 03/31/20 14:02 03/31/20 14:02 03/31/20 14:02 03/31/20 14:02 03/31/20 14:02 - Notes Notes: GENERAL: Female patient approximately stated age appearing in no acute distress. SKIN: Good turgor no rashes. HEAD: Normocephalic atraumatic. EYES: PERRLA. EOMI. Conjunctivae and sclerae clear. EARS: CANALS AND TMS CLEAR. NOSE: CLEAR. MOUTH: Moist mucosa. Good dentition. No stridor or edema. No drooling. NECK: Supple. No masses or thyromegaly. No adenopathy. Carotids 2+ without bruits. No JVD. BACK: Symmetrical without tenderness. CHEST: Respirations unlabored. Breath sounds clear and symmetrical. HEART: Regular rhythm. No murmur gallop or rub. ABDOMEN: Mild tenderness left upper quadrant which reproduces her discomfort. Soft without masses, organomegaly or rebound. Bowel sounds normally active. No bruits. GENITALIA: Deferred. EXTREMITIES: No edema. No calf tenderness. Cap refill less than 1.5 seconds. Dorsalis pedis and posterior tibial pulses 3+ and symmetrical. NEUROLOGICAL: GCS 15. Alert and oriented x3. Ambulatory with a cane. Fluent speech. Cranial nerves II through XII intact. Sensorimotor and cerebellar normal. Normal tone. PSYCHIATRIC: Flat affect. Course - Re-evaluation Re-evalutation: 03/31/20 19:25 CBC, troponin and comprehensive metabolic profile unremarkable. Mild sinus tachycardia on EKG with no other acute findings. Chest x-ray normal per r adiologist. KUB shows large amount of retained stool in the left hemicolon. I explained the patient I think her current symptoms are likely be on the basis of constipation. She was offered an enema here but declined this. She will take fleets enema at home and I have also recommended MiraLAX. She is to follow-up with Dr. Varghese in the office. She may return here for new or worsening symptoms. Findings, clinical impression and plan of treatment have been discussed with patient/family. Understanding of current findings and recommendations has been acknowledged by them and there is agreement regarding disposition and follow-up. - Vital Signs Vital signs: Temp Pulse Resp BP Pulse Ox 98.1 F 104 H 18 117/77 95 03/31/20 14:02 03/31/20 14:02 03/31/20 14:02 03/31/20 14:02 03/31/20 14:02 - Laboratory Result Diagrams: 03/31/20 15:38 03/31/20 15:38 Laboratory results interpreted by me: 03/31/20 03/31/20 15:38 15:38 RDW 14.7 H Chloride 110 H Carbon Dioxide 21 L Total Protein 6.1 L - Diagnostic Test Radiology reviewed: Image reviewed, Reports reviewed Radiology results interpreted by me: 03/31/20 19:24 Chest X-Ray 03/31/20 15:06 IMPRESSION: NO ACUTE RADIOGRAPHIC FINDING IN THE CHEST. KUB X-Ray 03/31/20 15:06 IMPRESSION: Moderate constipation. No other significant findings. - EKG Interpretation by Me Additional EKG results interpreted by me: 03/31/20 19:24 Twelve-lead EKG reviewed by me contemporaneously: Indication for study: Chest pain Rhythm: Sinus tachycardia Rate: 104 Intervals: Normal QRS axis: Normal ST/T wave changes: None Comparison with prior tracing: None Interpretation: Sinus tachycardia Discharge - Discharge Clinical Impression: Chest pain, Abdominal pain, Constipation, Multiple sclerosis Clinical Impression: (Ruled Out): Condition: Stable Disposition: HOME, SELF-CARE Additional Instructions: Take a fleets enema at home. This can be purchased without a prescription at your pharmacist. Take prescribed medication in addition of this. Increase oral fluids. Return here as needed for new or worsening symptoms: Pain that is worsening or unimproved Uncontrolled vomiting High fever or shaking chills Overall worsening Follow-up with your primary care provider within the next 3 to 5 days. Prescriptions: Polyethylene Glycol 3350 [Miralax] 1 cap PO DAILY #527 powder Referrals: DAMIÁN SAGASTUME PA-C [Primary Care Provider] - Follow up as needed
[2020-03-31 19:58] VITALS: BP 117/72
== END 2020-03-31 19:55 | disposition home or self-care (01) ==
LOC: ER 13:46
DX: R07.9 Chest pain, unspecified (principal); R10.12 Left upper quadrant pain; G35 Multiple sclerosis; K59.00 Constipation, unspecified
CPT/HCPCS: 36415; 71045; 74018; 80053; 81001; 84484; 84703; 85025; 93005; 93010; 99285